=== PATIENT | male | born 1965 | race Caucasian/White ===

== ENCOUNTER 2017-02-20 13:05 | Observation (INO) ==
[2017-02-20] MEDS ORDERED: Aspirin 81 MG TAB.CHEW PO ONE (13:22)
--- NOTE | 2017-02-20 13:25 | Emergency Department Note ---
Disposition Clinical Impression: Chest pain Qualifiers: Chest pain type: unspecified Qualified Code(s): R07.9 - Chest pain, unspecified Disposition: Admitted As Inpatient Condition: Fair Forms: ED Satisfaction Letter Time of Disposition: 14:20 Chest Pain HPI - General Chief Complaint: ED Chest Pain Stated Complaint: chest pains, lightheaded, falling down, cramps Time Seen by Provider: 02/20/17 13:22 Source: patient Mode of arrival: ambulatory Limitations: no limitations Vital Signs Reviewed: Yes Nursing Notes Reviewed: Yes - History of Present Illness HPI Narrative: 51-year-old comes in with a two-week history of intermittent chest pain that is similar in character to the chest pain he had with his previous ME. Patient states that did have some nausea and diaphoresis associated. Pt complaint: chest pain Onset (ago): week(s) Duration: intermittent Onset: during rest Pain Location: substernal, left chest Severity scale (1-10): 0 Quality: tightness, aching Pain Radiation: none Improves with: nothing Worsens with: nothing Associated symptoms: Reports: nausea, diaphoresis - Related Data Previous Rx's Medication Instructions Recorded Omeprazole [PriLOSEC] 20 mg PO DAILY #30 capsule. 01/29/16 Diclofenac Sodium [Voltaren] 50 mg PO Q8HR #30 tablet. 09/06/16 HYDROcodone/Acet 5/325 mg [[place] 1 tab PO Q6H PRN #15 tab 09/06/16 5-325 mg] HYDROcodone/Acet 5/325 mg [[place] 1 tab PO Q6H PRN #6 tab 09/14/16 5-325 mg] Naproxen [Naprosyn] 500 mg PO BID PRN #10 tablet 09/14/16 Allergies Allergy/AdvReac Type Severity Reaction Status Date / Time No Known Drug Allergies Allergy See Verified 02/20/17 13:07 Comments All systems ED: reviewed and negative except as stated. Constitutional: Denies: fever, chills, weakness, weight change Eyes: Denies: eye pain, eye discharge, vision change ENT ED: Denies: ear pain, throat pain, dental pain, hearing loss, epistaxis, congestion, dysphagia Cardiovascular: Reports: chest pain. Denies: palpitations, dyspnea on exertion , edema, syncope Respiratory: Denies: cough, dyspnea, wheezes, hemoptysis, stridor Gastrointestinal: Denies: abdominal pain, nausea, vomiting, diarrhea, constipation, hematemesis, melena, hematochezia Genitourinary: Denies: urgency, dysuria, frequency, hematuria Musculoskeletal: Denies: back pain, neck pain, arthralgia, myalgia Integumentary: Denies: rash, abrasion, lesions Neurological: Denies: headache, weakness, numbness, paresthesias, confusion, abnormal gait, vertigo Psychiatric: Denies: anxiety, depression, suicidal thoughts, homicidal thoughts , auditory hallucinations, visual hallucinations Endocrine: Denies: fatigue Hematological/Lymphatic: Denies: easy bleeding, easy bruising Allergic/Immunologic: Denies: facial swelling, urticaria Chest Pain PMH - Past Medical History Medical history: Reports: coronary artery disease, hypertension, myocardial infarction Psychiatric history: Reports: depression - Social History Smoking Status: Current every day smoker Alcohol use: Reports: none Drug use: Reports: none Physical Exam - General Limitations: no limitations General appearance: alert, in no apparent distress - Head Head exam: atraumatic, normocephalic, normal inspection - Eye Eye exam: Present: normal appearance, PERRL, EOMI - ENT ENT exam: normal exam, normal oropharynx, mucous membranes moist - Neck Neck exam: Present: normal inspection, full ROM, trachea midline - Chest Chest inspection: Present: normal inspection, symmetric chest wall rise - Abdominal Exam Abdominal exam: Present: soft, Non-Tender. Absent: tenderness, distention, guarding, rebound, rigidity - Extremities Exam Extremities exam: Present: normal inspection, full ROM. Absent: tenderness, pedal edema - Expanded Lower Extremity Exam Neurovascular/Tendon exam: Absent: motor deficit, sensory deficit, tendon deficit Gait: observed and normal - Back Exam Back exam: Present: normal inspection, full ROM. Absent: tenderness - Neurological Exam Neurological exam: Present: alert, oriented X3 - Psychiatric Psychiatric exam: Present: normal affect, normal mood - Skin Skin exam: Present: warm, dry, intact, normal color Course - Reevaluation(s) Reevaluation #1: 51-year-old who states has a history of previous ME comes in complaining of chest pain is similar in character to his pain he had with his previous ME. No recent cardiac workup. He's been having intermittent chest pain. Workup in the ER is negative. We will admit for further evaluation. Time: 14:19 - Consultations Consultation #1: Discussed with , admit. Time: 14:19 Vital Signs Temperature 97.8 F 02/20/17 13:07 Pulse Rate 103 02/20/17 13:07 Respiratory Rate 18 02/20/17 13:07 Blood Pressure 168/83 02/20/17 13:07 O2 Sat by Pulse Oximetry 98 02/20/17 13:07 Temperature 97.8 F 02/20/17 13:07 Pulse Rate 74 02/20/17 13:24 Respiratory Rate 20 02/20/17 13:24 Blood Pressure 134/85 02/20/17 13:24 O2 Sat by Pulse Oximetry 98 02/20/17 13:33 Oxygen Delivery Oxygen Delivery Room Air Chest Pain - Lab Data Result diagrams: 02/20/17 13:29 02/20/17 13:29 Lab Results 02/20/17 02/20/17 02/20/17 Range/Units 13:29 13:29 13:29 WBC 7.4 (4.3-11.1) K/mcL RBC 4.62 (4.19-5.50) M/mcL Hgb 14.9 (12.9-16.9) g/dL Hct 41.6 (37.5-50.1) % MCV 90.0 (83.0-100.0) fL MCH 32.3 (28.0-33.3) pg MCHC 35.8 H (31.6-35.5) g/dL RDW 12.6 (11.5-14.5) % Plt Count 138 L (140-400) K/mcL MPV 10.1 (9.4-12.4) fL Immature Gran % 0.3 (0-4) % Seg Neutrophils % 78.2 % Lymphocytes % 13.0 % Monocytes % 7.3 % Eosinophils % 0.8 % Basophils % 0.4 % Neutrophils # 5.8 (1.6-8.9) K/mcL Lymphocytes # 1.0 (0.6-4.6) K/mcL Monocytes # 0.5 (0.0-1.3) K/mcL Eosinophils # 0.1 (0.0-0.6) K/mcL Basophils # 0.0 (0.0-0.2) K/mcL PT 11.8 (9.4-12.1) Seconds INR 1.1 APTT 27.2 (26.0-36.0) Seconds Sodium 135 L (136-145) mEq/L Potassium 3.7 (3.5-4.5) mEq/L Chloride 93 L (98-109) mEq/L Carbon Dioxide 33 H (19-29) mEq/L BUN 11 (8-26) mg/dL Creatinine 0.83 (0.72-1.25) mg/dL Est GFR ( Amer) > 60 (> 60) Est GFR (Non-Af Amer) > 60 (> 60) BUN/Creatinine Ratio 13 (6-26) Glucose 154 H (70-99) mg/dL Calculated Osmolality 282 (280-300) Calcium 9.6 (8.6-10.8) mg/dL Troponin I (0-0.03) ng/mL 02/20/17 Range/Units 13:29 WBC (4.3-11.1) K/mcL RBC (4.19-5.50) M/mcL Hgb (12.9-16.9) g/dL Hct (37.5-50.1) % MCV (83.0-100.0) fL MCH (28.0-33.3) pg MCHC (31.6-35.5) g/dL RDW (11.5-14.5) % Plt Count (140-400) K/mcL MPV (9.4-12.4) fL Immature Gran % (0-4) % Seg Neutrophils % % Lymphocytes % % Monocytes % % Eosinophils % % Basophils % % Neutrophils # (1.6-8.9) K/mcL Lymphocytes # (0.6-4.6) K/mcL Monocytes # (0.0-1.3) K/mcL Eosinophils # (0.0-0.6) K/mcL Basophils # (0.0-0.2) K/mcL PT (9.4-12.1) Seconds INR APTT (26.0-36.0) Seconds Sodium (136-145) mEq/L Potassium (3.5-4.5) mEq/L Chloride (98-109) mEq/L Carbon Dioxide (19-29) mEq/L BUN (8-26) mg/dL Creatinine (0.72-1.25) mg/dL Est GFR ( Amer) (> 60) Est GFR (Non-Af Amer) (> 60) BUN/Creatinine Ratio (6-26) Glucose (70-99) mg/dL Calculated Osmolality (280-300) Calcium (8.6-10.8) mg/dL Troponin I 0.01 (0-0.03) ng/mL - EKG Data EKG attestation: Yes I reviewed and interpreted this EKG. EKG shows normal: sinus rhythm Rate: normal Rhythm: NSR [place]/QRS: IVCD Interpretation: no acute changes Heart Score - Score History: Moderately Suspicious EKG: Normal Age: 45-65 Risk Factors: 1-2 risk factors Troponin: Less than normal limit HEART Score Total: 3
[2017-02-20 13:39] LABS: Basophils % 0.4 %; Eosinophils # 0.1 K/mcL (0.0-0.6); Eosinophils % 0.8 %; Hematocrit 41.6 % (37.5-50.1); Hemoglobin 14.9 g/dL (12.9-16.9); Immature Granulocytes % 0.3 % (0-4); Mean Corpuscular HGB Conc 35.8 g/dL (31.6-35.5); Mean Corpuscular Hemoglobin 32.3 pg (28.0-33.3); Mean Platelet Volume 10.1 fL (9.4-12.4); Monocytes # 0.5 K/mcL (0.0-1.3); Monocytes % 7.3 %; Neutrophils # 5.8 K/mcL (1.6-8.9); Platelet Count 138 K/mcL (140-400); Red Blood Count 4.62 M/mcL (4.19-5.50); Red Cell Distribution Width 12.6 % (11.5-14.5); Segmented Neutrophils % 78.2 %
[2017-02-20 13:52] LABS: BUN/Creatinine Ratio 13 (6-26); Blood Urea Nitrogen 11 mg/dL (8-26); Calcium 9.6 mg/dL (8.6-10.8); Carbon Dioxide 33 mEq/L (19-29); Chloride 93 mEq/L (98-109); Glucose 154 mg/dL (70-99); Osmolality,Calculated 282 (280-300); Potassium 3.7 mEq/L (3.5-4.5); Sodium 135 mEq/L (136-145); eGFR For African Americans > 60 (> 60); eGFR For Non-African Americans > 60 (> 60)
[2017-02-20 13:53] LABS: Activated Partial Thrombo Time 27.2 Seconds (26.0-36.0); INR 1.1; Prothrombin Time 11.8 Seconds (9.4-12.1)
[2017-02-20] MEDS ORDERED: Acetaminophen 325 MG TABLET PO PRN (15:09)
[2017-02-20] MEDS ORDERED: Naloxone 0.4 MG/ML INJ IVP PRN (15:09)
[2017-02-20] MEDS ORDERED: *HR* HYDROcodone/Acet 5/325 mg TABLET PO PRN (15:09)
[2017-02-20] MEDS ORDERED: Ondansetron 4 MG/2 ML VIAL IVP PRN (15:09)
[2017-02-20] MEDS ORDERED: *HR* Morphine 2 MG/ML SYRINGE IVP PRN (15:17)
--- NOTE | 2017-02-20 16:26 | Internal Med History&Physical ---
<[email or web address] elder - Last Filed: 02/20/17 16:59> Date of Encounter: 02/20/17 Time of Encounter: 13:30 Assessment and Plan (1) Chest pain Current visit: Yes Status: Acute Patient presents with acute chest pain that he reports has been going on for the past several weeks but became worse today. Patient reports shortness of breath, diaphoresis, and pressure in the center of his chest. He states rest will relieve the pain. He describes pain is intermittent and non-radiating. Patient also reports episodes of vomiting and nausea over the past week. On admission, patient's troponin was 0.01. Patient reports he is an everyday smoker , smoking 1/2 PPD and that he has had no recent cardiac testing done. Orders placed for echocardiogram, continuous cardiac telemetry, troponins trended 2, supplemental O2 with SPO2 monitoring, stair-step pain medication for pain management, orthostatic BP and vital signs, heparin for DVT prophylaxis, and falls/safety precautions due to SOB. Nuclear pharm stress test ordered with patient to be NPO after midnight. Stress test will be contingent upon patient having no chest pain and no abnormal troponins. EKG today shows sinus rhythm with moderate intraventricular conduction delay. 1-view CXR today shows no active pulmonary disease. We will consider cardiology consult based on echocardiogram and stress test results. Nitroglycerin ordered PRN. Patient to be monitored closely for signs of increasing cardiac and/or respiratory distress. Qualifiers: Chest pain type: other chest pain Qualified Code(s): R07.89 - Other chest pain; R07.8 - Other chest pain (2) SOB (shortness of breath) Current visit: Yes Status: Acute Patient presents with acute shortness of breath associated with recurrent chest pain symptoms over the past couple of weeks. Patient reports he is a current smoker, smoking one half pack per day. Supplemental O2 with titration if SPO2 less than 92% and continuous SpO2 monitoring ordered. DuoNebs every 4 scheduled. Will monitor patient and vital signs. Patient to be placed as falls precautions/up with assist/bed rest with bathroom privileges with assist only due to current SOB. (3) Nausea & vomiting Current visit: Yes Status: Acute Patient presents with acute and sporadic nausea and vomiting over the past week reportedly due to his intermittent chest pain. IVP Zofran ordered when necessary. IVP Protonix 40 mg twice a day ordered. Will monitor patient's I&O. Qualifiers: Vomiting type: cyclical vomiting Vomiting Intractability: non-intractable Qualified Code(s): G43.A0 - Cyclical vomiting, not intractable (4) Tobacco abuse counseling Current visit: Yes Status: Acute Patient presents with history of chronic tobacco abuse reportedly smoking one half pack per day. Patient was counseled for 8 minutes regarding the dangers of continued tobacco abuse as related to his current chest pain and risk factors and the benefits and methods for smoking cessation. Patient expressed understanding and desire to quit smoking. 14 mg nicotine patch ordered daily. (5) CAD (coronary artery disease) Current visit: Yes Status: Chronic Patient presents with history of chronic coronary artery disease with history of previous myocardial infarction in 2016 without stent placement. Will continue patient's hydrochlorothiazide and begin patient on aspirin therapy daily. Lipid panel ordered and we will consider adding Lipitor to patient's medication list based on lipid panel results. Qualifiers: Coronary Disease-Associated Artery/Lesion type: unspecified vessel or lesion type [place] vs. transplanted heart: [place] heart Associated angina: angina presence unspecified Qualified Code(s): I25.10 - Atherosclerotic heart disease of [place] coronary artery without angina pectoris (6) HTN (hypertension) Current visit: Yes Status: Chronic Patient presents with history of chronic hypertension. Patient's blood pressure on admission to ED was 168/83 and 156/87. Patient vital signs to be monitored. Will continue patient's hydrochlorothiazide. Orthostatic BPs and vital signs ordered. Qualifiers: Hypertension type: essential hypertension Qualified Code(s): I10 - Essential (primary) hypertension (7) GERD (gastroesophageal reflux disease) Current visit: Yes Status: Chronic Patient presents with history of chronic gastroesophageal reflux disease. IVP Protonix 40 mg twice a day ordered. Qualifiers: Esophagitis presence: esophagitis presence not specified Qualified Code(s) : K21.9 - Gastro-esophageal reflux disease without esophagitis (8) DVT prophylaxis Current visit: Yes Status: Acute Patient to be placed on DVT prophylaxis due to current admission protocol and bedrest status. Heparin 5,000 units SQ Q8 ordered. Internal Medicine - H&P: HPI Chief complaint: Chest pain Admitted From: Emergency Dept Plans for Post Hospital Care: Home History of present illness: Mr. Bailey is a 51 year old male who presents from the ED with chief complaint of chest pain for the last several weeks that he states has become worse. Patient reports shortness of breath, diaphoresis, and pressure in the center of his chest. He states rest will relieve the pain. He describes pain is intermittent and non-radiating. Patient also reports episodes of vomiting and nausea over the past week. On admission, patient's troponin was 0.01. Patient denies recent illness, fever, chills, weakness, changes in vision, heart palpitations, edema, cough, nausea, vomiting, diarrhea, constipation, numbness, weakness, presyncope, or syncope. Patient's medical history includes coronary artery disease, hypertension, myocardial infarction in 2016, and GERD. Patient reports he is a current every day smoker, smoking one half pack per day. Patient was counseled regarding the dangers of continued tobacco abuse is related to his current chest pain and risk factors and the benefits and methods for smoking cessation. Patient has no known allergies. Patient has no recent cardiac testing. Mr. Bailey is at moderate risk for cardiac event based on current symptoms, tobacco abuse, and risk factors and will be placed as observation status with orders for echocardiogram, continuous cardiac telemetry , troponins trended 2, supplemental O2 with SPO2 monitoring, stair-step pain medication for pain management, orthostatic BP and vital signs, heparin for DVT prophylaxis, and falls/safety precautions due to SOB. Nuclear pharm stress test ordered with patient to be NPO after midnight. Stress test will be contingent upon patient having no chest pain and no abnormal troponins. EKG today shows sinus rhythm with moderate intraventricular conduction delay. 1-view CXR today shows no active pulmonary disease. We will consider cardiology consult based on echocardiogram and stress test results. Patient to be monitored closely for signs of increasing cardiac and/or respiratory distress. Time spent with patient >40 minutes. Past Med Surg Social Fam HX - Past Medical History Source: patient Medical history: coronary artery disease, hypertension, myocardial infarction Psychiatric history: depression - Past Surgical History Surgical History: no surgical history - Social History Smoking Status: Current every day smoker Packs per day: 1/2 PPD Smokeless Tobacco Status: No Alcohol use: none Drug use: none Occupational status: unemployed Current living situation: Home Activity Level: Independent ambulation Recent Out of Country Travel Within the Last 8 Weeks: No Exposure or Possible Exposure to Illness During Travel: No - Family History Mother Race: Family Member Ethnicity: Non- Age at : 72 Cause of : Lung cancer Hx Family Cancer: Yes (Lung) Father Race: Family Member Ethnicity: Non- Living Status: Age at : 67 Cause of : Lung cancer Hx Family Cancer: Yes (Lung) Hx Family Neuromuscular Disorders: Yes (Parkinson's disease) Brother Race: Family Member Ethnicity: Non- Living Status: Still Living Hx Family Endocrine Disorder: Yes (DM) Sister Race: Family Member Ethnicity: Non- Living Status: Still Living Hx Family Endocrine Disorder: Yes (DM) Internal Medicine - H&P: Meds Omeprazole [PriLOSEC] 20 mg PO DAILY #30 capsule. 01/29/16 [Rx] Naproxen [Naprosyn] 500 mg PO BID PRN #10 tablet 09/14/16 [Rx] Sertraline [Zoloft] 50 mg PO DAILY 02/20/17 [History] hydroCHLOROthiazide [Hydrochlorothiazide] 12.5 mg PO DAILY 02/20/17 [History] 3 Allergy/AdvReac Type Severity Reaction Status Date / Time No Known Drug Allergies Allergy See Verified 02/20/17 13:07 Comments All Systems PM: A 10-system review of systems was performed and is negative for pertinent findings except as documented above in the HPI. - Constitutional Constitutional: as per HPI, excessive sweating (With chest pain), no chills, no fever(s), no night sweats - EENT Eyes: no change in vision, no discharge, no pain, no photophobia Ears: no ear discharge, no ear pain, no tinnitus Nose, mouth and throat: no dysphagia, no nasal discharge, no neck pain, no sore throat - Breasts Breasts: as per HPI - Cardiovascular Cardiovascular ROS IM: as per HPI, chest pain, diaphoresis, dyspnea, dyspnea on exertion - Respiratory Respiratory: as per HPI, dyspnea, dyspnea on exertion - Gastrointestinal Gastrointestinal: no abdominal pain, no diarrhea, no hematemesis, no hematochezia, no melena, no nausea, no vomiting - Genitourinary Genitourinary ROS male: as per HPI - Musculoskeletal Musculoskeletal ROS IM: no numbness, no tingling - Integumentary Integumentary IM: no rash, no unusual bruising - Neurological Neurological ROS: no confusion, no convulsions, no focal weakness, no numbness, no tingling, no tremor(s) - Psychiatric Psychiatric: as per HPI - Endocrine Endocrine IM: as per HPI - Hematologic/Lymphatic Hematologic/Lymphatic: no easy bruising - Allergic/Immunologic Allergic/Immunologic: as per HPI - Constitutional Vitals: Temp Pulse Resp BP Pulse Ox 98.3 F 69 16 133/76 100 02/20/17 15:17 02/20/17 15:17 02/20/17 15:17 02/20/17 15:17 02/20/17 15:17 General appearance: Present: cooperative, disheveled, A&O X 3, no acute distress , underweight, answers questions appropriately - Head Head exam: Present: atraumatic, normocephalic - Eye Eye exam: Present: PERRL, conjuntiva pink, sclera anicteric Pupils: Present: PERRL - ENT ENT exam: Present: normal exam, normal external ear exam - Neck Neck exam general surgery: Present: normal inspection, supple, trachea midline. Absent: lymphadenopathy - Respiratory Respiratory exam: Present: CTAB. Absent: accessory muscle use, rales, rhonchi, wheezes - Cardiovascular Cardiovascular exam: Present: RRR, +S1, +S2. Absent: diastolic murmur, gallop, rubs, systolic murmur - GI/Abdominal GI/Abdominal exam: Present: normal bowel sounds, soft, no peritoneal signs. Absent: distended, tenderness - Rectal Rectal exam: Present: deferred - Additional comments: exam deferred. - Extremities Exam Extremities exam: Present: warm, radial pulses palpable and symmetrical. Absent : calf tenderness, cyanotic, pedal edema - Back Exam Back exam: Present: normal inspection - Neurological Exam Neurological exam: Present: CN II-XII intact, oriented X3, no focal deficits. Absent: pronater drift, facial droop, speech deficit - Psychiatric Psychiatric exam: Present: flat affect - Skin Skin exam: Present: dry, intact Internal Med - H&P Results - Labs CBC & Chem 7: 02/20/17 13:29 02/20/17 13:29 - EKG Data EKG shows normal: sinus rhythm - EKG Data Prior EKG available for review: yes When compared to previous EKG: there is no significant change EKG comments: 02/20/17 16:41 EKG dated 09/10/10 shows sinus rhythm and normal ECG. EKG dated 01/29/16 shows sinus rhythm. EKG dated 02/20/17 shows sinus rhythm with moderate intraventricular conduction delay. Borderline ECG - Diagnostic Studies Chest x-ray Additional comments: Impressions Chest X-Ray 02/20/17 13:22 IMPRESSION: 1. No active pulmonary disease. D/ / Ariel Reyes MD / Ariel Reyes MD Interpreting Provider: Ariel Reyes MD <Rigoberto Munoz - Last Filed: 02/20/17 18:37> Date of Encounter: 02/20/17 Internal Medicine - H&P: HPI History of present illness: Mr. Bailey is a 51 year old male All Systems PM: A 10-system review of systems was performed and is negative for pertinent findings except as documented above in the HPI. - Constitutional Vitals: Temp Pulse Resp BP Pulse Ox 98.3 F 69 16 133/76 100 02/20/17 15:17 02/20/17 15:17 02/20/17 15:17 02/20/17 15:17 02/20/17 15:17 Internal Med - H&P Results - Labs CBC & Chem 7: 02/20/17 13:29 02/20/17 13:29 - Attending Attestation I saw and examined pt independently. I have discussed with [employer] Mr. Lynn regarding the management plan. Agree with documentation. Pt has intermittent chest pain on and off for several weeks. Need to r/o ACS/ CAD. Will cont cardiac monitoring, track 3 sets of troponin, echo, and stress test in AM if pt remains pain free and troponin negative.
[2017-02-20] MEDS ORDERED: Nitroglycerin 0.4 MG TAB.SUBL SL PRN (16:58)
[2017-02-20] MEDS: Nicotine 14 MG PATCH.TD24 TD SCH (17:02)
[2017-02-20] MEDS: Ipratropium/Albuterol Neb 3 ML IH SCH (20:08)
[2017-02-20] MEDS: Pantoprazole 40 MG VIAL IVP SCH (20:45)
[2017-02-20] MEDS: *HR* Heparin 5,000 UNIT/ML VIAL SQ SCH (20:45)
[2017-02-20 22:12] LABS: Amphetamine Screen,Urine Negative ng/mL (Cutoff=1000); Barbiturate Screen,Urine Negative ng/mL (Cutoff=200); Benzodiazepines Screen,Urine Negative ng/mL (Cutoff=200); Cannabinoid Screen,Urine Negative ng/mL (Cutoff = 50); Cocaine Screen,Urine Negative ng/mL (Cutoff= 300); Opiate Screen,Urine Negative ng/mL (Cutoff=300); Phencyclidine Screen,Urine Negative ng/mL (Cutoff=25)
[2017-02-21] MEDS: Ipratropium/Albuterol Neb 3 ML IH SCH ×7 (00:31→23:13)
[2017-02-21 02:11] LABS: Basophils # 0.1 K/mcL (0.0-0.2); Basophils % 0.9 %; Eosinophils # 0.4 K/mcL (0.0-0.6); Eosinophils % 7.3 %; Hematocrit 39.7 % (37.5-50.1); Hemoglobin 13.7 g/dL (12.9-16.9); Immature Granulocytes % 0.2 % (0-4); Immature Platelets 8.7 % (1.1-6.1); Lymphocytes # 1.8 K/mcL (0.6-4.6); Lymphocytes % 31.8 %; Mean Corpuscular HGB Conc 34.5 g/dL (31.6-35.5); Mean Corpuscular Hemoglobin 31.6 pg (28.0-33.3); Mean Corpuscular Volume 91.5 fL (83.0-100.0); Mean Platelet Volume 10.4 fL (9.4-12.4); Monocytes # 0.7 K/mcL (0.0-1.3); Monocytes % 12.5 %; Neutrophils # 2.6 K/mcL (1.6-8.9); Platelet Count 126 K/mcL (140-400); Red Blood Count 4.34 M/mcL (4.19-5.50); Red Cell Distribution Width 12.5 % (11.5-14.5); Segmented Neutrophils % 47.3 %
[2017-02-21 04:20] LABS: Hemoglobin A1C 4.8 %
[2017-02-21 04:24] LABS: BUN/Creatinine Ratio 17 (6-26); Blood Urea Nitrogen 12 mg/dL (8-26); Calcium 8.7 mg/dL (8.6-10.8); Carbon Dioxide 29 mEq/L (19-29); Chloride 97 mEq/L (98-109); Cholesterol 128 mg/dL (< 200); Glucose 86 mg/dL (70-99); HDL Cholesterol 64 mg/dL (40-59); LDL Cholesterol,Calculated 50 mg/dL (0-99); Magnesium 2.5 mg/dL (1.6-2.6); Osmolality,Calculated 283 (280-300); Potassium 3.1 mEq/L (3.5-4.5); Sodium 137 mEq/L (136-145); Triglycerides 72 mg/dL (< 150); eGFR For African Americans > 60 (> 60); eGFR For Non-African Americans > 60 (> 60)
[2017-02-21 05:28] LABS: Prothrombin Time 10.4 Seconds (9.4-12.1)
[2017-02-21 05:30] LABS: Activated Partial Thrombo Time 28.4 Seconds (26.0-36.0)
[2017-02-21] MEDS: *HR* Heparin 5,000 UNIT/ML VIAL SQ SCH ×3 (05:37→21:22)
[2017-02-21] MEDS ORDERED: Regadenoson 0.4 MG/5 ML SYRINGE IVP ONE (05:44)
[2017-02-21] MEDS: Nicotine 14 MG PATCH.TD24 TD SCH (09:37)
[2017-02-21] MEDS: Pantoprazole 40 MG VIAL IVP SCH (09:37)
[2017-02-21] MEDS: Aspirin Enteric Coated 81 MG Tablet PO SCH (09:37)
[2017-02-21] MEDS: hydroCHLOROthiazide 25 MG TABLET PO SCH (09:39)
--- NOTE | 2017-02-21 10:36 | Internal Med Progress Note ---
<OumarmalindasyedBacilio turcios - Last Filed: 02/21/17 10:32> Date of Encounter: 02/21/17 Time of Encounter: 10:32 - Assessment and plan (1) Chest pain Current Visit: Yes Status: Acute Assessment and plan: Resolved Pt admitted with chest pain. Trops - x3 EKG shows NSR c moderate intraventricular conduction delay CXR: no active pulmonary disease. Smoker, Hx of CAD, HTN ECHO and Stress test performed today results pending. Qualifiers: Chest pain type: other chest pain Qualified Code(s): R07.89 - Other chest pain; R07.8 - Other chest pain (2) SOB (shortness of breath) Current Visit: Yes Status: Acute Assessment and plan: Resolved. See plan in Chest Pain. discontinue Duonebs, Oxygen. (3) Nausea & vomiting Current Visit: Yes Status: Acute Assessment and plan: Resolved. Continue prn zofran Protonix d/c'd Started pepcid Qualifiers: Vomiting type: cyclical vomiting Vomiting Intractability: non-intractable Qualified Code(s): G43.A0 - Cyclical vomiting, not intractable (4) CAD (coronary artery disease) Current Visit: Yes Status: Chronic Assessment and plan: Chronic. continue ASA Started Statin. BB not started for Stress test/echo Qualifiers: Coronary Disease-Associated Artery/Lesion type: unspecified vessel or lesion type [place] vs. transplanted heart: [place] heart Associated angina: angina presence unspecified Qualified Code(s): I25.10 - Atherosclerotic heart disease of [place] coronary artery without angina pectoris (5) HTN (hypertension) Current Visit: Yes Status: Chronic Assessment and plan: Chronic, stable. Continue home meds Qualifiers: Hypertension type: essential hypertension Qualified Code(s): I10 - Essential (primary) hypertension (6) GERD (gastroesophageal reflux disease) Current Visit: Yes Status: Chronic Assessment and plan: Stable chronic continue pepcid Qualifiers: Esophagitis presence: esophagitis presence not specified Qualified Code(s) : K21.9 - Gastro-esophageal reflux disease without esophagitis (7) Tobacco abuse counseling Current Visit: Yes Status: Acute Assessment and plan: Counseled on stoping smoking. Patient desires to quit. continue nicotine patch - Subjective Interval history: Patient back from stress test and echo. He denies chest pain, SOB, Abd pn, leg swelling. He reports feeling well. - Constitutional Vitals: Temp Pulse Resp BP Pulse Ox 97.8 F 59 18 114/70 99 02/21/17 06:34 02/21/17 06:34 02/21/17 06:34 02/21/17 06:34 02/21/17 06:34 General appearance: Present: cooperative, disheveled, A&O X 3, no acute distress , underweight, answers questions appropriately - Head Head exam: Present: atraumatic, normocephalic - Eye Eye exam: Present: PERRL, sclera anicteric Pupils: Present: PERRL - ENT ENT exam: Present: mucous membranes moist - Neck Neck exam general surgery: Present: supple, trachea midline - Respiratory Respiratory exam: Present: CTAB. Absent: accessory muscle use, rales, rhonchi, wheezes - Cardiovascular Cardiovascular exam: Present: RRR, +S1, +S2. Absent: diastolic murmur, gallop, rubs, systolic murmur - GI/Abdominal GI/Abdominal exam: Present: normal bowel sounds, soft. Absent: tenderness - Extremities Exam Extremities exam: Absent: calf tenderness, cyanotic, pedal edema - Neurological Exam Neurological exam: Present: alert, oriented X3. Absent: facial droop, speech deficit - Psychiatric Psychiatric exam: Present: normal affect, normal mood - Skin Skin exam: Present: dry, warm Internal Medicine: Result - Labs CBC & Chem 7: 02/21/17 01:20 02/21/17 Unknown Labs: Short CBC 02/21/17 Range/Units 01:20 WBC 5.5 (4.3-11.1) K/mcL Hgb 13.7 (12.9-16.9) g/dL Hct 39.7 (37.5-50.1) % Plt Count 126 L (140-400) K/mcL Neutrophils # 2.6 (1.6-8.9) K/mcL BMP 02/21/17 Unknown Sodium 137 Potassium 3.1 L Chloride 97 L Carbon Dioxide 29 BUN 12 Creatinine 0.69 L Glucose 86 Calcium 8.7 Cardiac Enzymes 02/20/17 02/21/17 Range/Units 19:07 Unknown Troponin I 0.00 0.00 (0-0.03) ng/mL - ABG Interpretation ABG results: PT/INR, D-dimer PT 10.4 Seconds (9.4-12.1) 02/21/17 03:27 Consult Discharge Plan - Plan Referrals: NONE,PCP [Primary Care Provider] - <King Sarmiento P - Last Filed: 02/21/17 18:23> Date of Encounter: 02/21/17 - Constitutional Vitals: Temp Pulse Resp BP Pulse Ox 98.1 F 66 16 108/64 96 02/21/17 15:39 02/21/17 15:39 02/21/17 16:04 02/21/17 15:39 02/21/17 16:04 Internal Medicine: Result - Labs CBC & Chem 7: 02/21/17 01:20 02/21/17 Unknown Labs: Short CBC 02/21/17 Range/Units 01:20 WBC 5.5 (4.3-11.1) K/mcL Hgb 13.7 (12.9-16.9) g/dL Hct 39.7 (37.5-50.1) % Plt Count 126 L (140-400) K/mcL Neutrophils # 2.6 (1.6-8.9) K/mcL BMP 02/21/17 Unknown Sodium 137 Potassium 3.1 L Chloride 97 L Carbon Dioxide 29 BUN 12 Creatinine 0.69 L Glucose 86 Calcium 8.7 Cardiac Enzymes 02/20/17 02/21/17 Range/Units 19:07 Unknown Troponin I 0.00 0.00 (0-0.03) ng/mL - ABG Interpretation ABG results: PT/INR, D-dimer PT 10.4 Seconds (9.4-12.1) 02/21/17 03:27 - Attending Attestation I examined this patient and my medical decision-making was reviewed with the Resident Physician. I agree with the documented findings, disposition and treatment plan as described except to the extent set forth below.
--- NOTE | 2017-02-21 12:08 | Nuclear Medicine Stress Report ---
Exercise Nuclear Stress Name: Earl Bailey Date of Study: 02/21/2017 Date: 1965 Ht: 68.0 in Medical Record#: [id number] Age: 51 Wt: 145.0 lb Gender: Male Order #: [id number] Location: [facility] IP Room: [facility] Supervising Provider: Anna Chavis CNP Reading Physician: Rita Bonner DO Ordering Physician: King Sarmiento MD Primary Care Physician: None Stress Technologist: Cynthia Cochran, GUN NUMBER,CPFT [employer] Tile Setter: Macie Farley Indications: Chest Pain Impression: Perfusion imaging was negative for ischemia or infarct. Exercise ECG was negative for ischemia. Gated EF = 63%. History: Hypertension History of Smoking Stress Test Summary: Stress Test Type: Treadmill Protocol: [place] Baseline Information: Initial Heart Rate: 87 Blood Pressure: 108/46 Stress Information: Stress Time: 7 min 21 sec Test Terminated Due to (primary): Fatigue Maximum Blood Pressure: 146/60 Maximum Heart Rate: 156 Percent Maximum Heart Rate Achieved: 91 Double Product: [id number] METS Reached: 10.1 Symptoms: Fatigue Nuclear Summary: SPECT myocardial perfusion imaging using Tc99m Sestamibi given intravenously was performed at rest and following cardiac stress testing. The resting images were obtained following initial dose of 11.5 mCi. Following stress an additional dose of 32.2 mCi was given at peak exercise or 30 seconds post regadenoson infusion. Medication Given: Time Medication Dose Units Route Findings: Stress Note * Resting ECG demonstrated normal sinus rhythm with nonspecific diffuse ST abnormalities. * Exercise ECG is negative for ischemia. * No arrhythmias were noted during stress. Infrequent PVCs during rest and recovery. * Patient had no chest pain during stress. * The exercise capacity was good. Hemodynamic responses * Normal hemodynamic responses to exercise. Study Quality * Study quality was fair. Gated EF % * Gated EF = 63%. Left Ventricle * The left ventricle is not dilated. TID * No evidence of transient ischemic dilatation. Lung Uptake * There is no evidence of increase lung uptake. NORMALS * Normal wall motion. PERFUSION * There is a mild intensity perfusion defect involving the inferior wall during rest that improves with stress. Findings represent artifact. * Stress perfusion images demonstrate normal radiotracer uptake. Updated by Rita Bonner on 02/21/2017 9:42:26 AM electronically signed on 02/21/2017 9:43:30 AM with status of Final
--- NOTE | 2017-02-21 18:32 | Electrocardiograph Report ---
[place] [address] Test Date: 2017-02-20 Pat Name: Earl Bailey Department: 104 Room: 2A Gender: M [employer]: FREDY : 1965 Requested By: Tiago Padgett Order Number: [id number] Reading MD: Rita Bonner Measurements Intervals [place] Rate: 89 P: 77 CO: 163 QRS: 47 QRSD: 114 T: 60 QT: 353 QTc: 400 Interpretive Statements SINUS RHYTHM INTRAVENTRICULAR CONDUCTION DELAY Electronically Signed On 02-21-2017 18:30:47 EDT by Rita Bonner
[2017-02-21] MEDS: Famotidine 20 MG TABLET PO SCH (20:00)
[2017-02-22] MEDS: Ipratropium/Albuterol Neb 3 ML IH SCH ×3 (05:10→11:01)
[2017-02-22 05:41] LABS: Mean Corpuscular HGB Conc 32.8 g/dL (31.6-35.5); Mean Corpuscular Volume 94.6 fL (83.0-100.0); Mean Platelet Volume 11.1 fL (9.4-12.4); Platelet Count 130 K/mcL (140-400); Red Blood Count 4.23 M/mcL (4.19-5.50)
[2017-02-22 05:43] LABS: Hemoglobin 13.1 g/dL (12.9-16.9)
[2017-02-22 05:55] LABS: BUN/Creatinine Ratio 12 (6-26); Blood Urea Nitrogen 8 mg/dL (8-26); Calcium 8.9 mg/dL (8.6-10.8); Chloride 101 mEq/L (98-109); Glucose 90 mg/dL (70-99); Osmolality,Calculated 286 (280-300); Potassium 3.8 mEq/L (3.5-4.5); Sodium 139 mEq/L (136-145); eGFR For African Americans > 60 (> 60); eGFR For Non-African Americans > 60 (> 60)
[2017-02-22] MEDS: *HR* Heparin 5,000 UNIT/ML VIAL SQ SCH (06:11)
[2017-02-22 06:25] LABS: Carbon Dioxide 30 mEq/L (19-29)
[2017-02-22] MEDS ORDERED: 0.9 % Sodium Chloride 500 ML IVC ONE (08:28)
[2017-02-22] MEDS ORDERED: Tetracaine/Benzocaine/Butamben 200MG/SPRAY (100SPY/BOT) MM ONE (08:28)
[2017-02-22] MEDS: *HR* FentaNYL (PF) 100 MCG/2 ML VIAL IVP PRN ×2 (08:55→09:00)
[2017-02-22] MEDS: *HR* Midazolam HCl 5 MG/5 ML VIAL IVP PRN ×2 (08:55→09:00)
[2017-02-22] MEDS: Nicotine 14 MG PATCH.TD24 TD SCH (09:27)
[2017-02-22] MEDS: Aspirin Enteric Coated 81 MG Tablet PO SCH (09:27)
[2017-02-22] MEDS: hydroCHLOROthiazide 25 MG TABLET PO SCH (09:27)
[2017-02-22] MEDS: Famotidine 20 MG TABLET PO SCH (09:28)
--- NOTE | 2017-02-22 09:52 | Internal Med Progress Note ---
Date of Encounter: 02/22/17 Time of Encounter: 09:52 - Assessment and plan (1) Chest pain Current Visit: Yes Status: Acute Qualifiers: Chest pain type: other chest pain Qualified Code(s): R07.89 - Other chest pain; R07.8 - Other chest pain (2) SOB (shortness of breath) Current Visit: Yes Status: Acute (3) Nausea & vomiting Current Visit: Yes Status: Acute Qualifiers: Vomiting type: cyclical vomiting Vomiting Intractability: non-intractable Qualified Code(s): G43.A0 - Cyclical vomiting, not intractable (4) CAD (coronary artery disease) Current Visit: Yes Status: Chronic Qualifiers: Coronary Disease-Associated Artery/Lesion type: unspecified vessel or lesion type [place] vs. transplanted heart: [place] heart Associated angina: angina presence unspecified Qualified Code(s): I25.10 - Atherosclerotic heart disease of [place] coronary artery without angina pectoris (5) HTN (hypertension) Current Visit: Yes Status: Chronic Qualifiers: Hypertension type: essential hypertension Qualified Code(s): I10 - Essential (primary) hypertension (6) GERD (gastroesophageal reflux disease) Current Visit: Yes Status: Chronic Qualifiers: Esophagitis presence: esophagitis presence not specified Qualified Code(s) : K21.9 - Gastro-esophageal reflux disease without esophagitis (7) Tobacco abuse counseling Current Visit: Yes Status: Acute - Subjective Interval history: Patient back from stress test and echo. He denies chest pain, SOB, Abd pn, leg swelling. He reports feeling well. - Constitutional Vitals: Temp Pulse Resp BP Pulse Ox 97.6 F 66 18 131/70 99 02/22/17 08:29 02/22/17 08:29 02/22/17 08:29 02/22/17 08:29 02/22/17 08:29 General appearance: Present: cooperative, disheveled, A&O X 3, no acute distress , underweight, answers questions appropriately Internal Medicine: Result - Labs CBC & Chem 7: 02/22/17 04:35 02/22/17 04:35 Labs: Short CBC 02/22/17 Range/Units 04:35 WBC 5.0 (4.3-11.1) K/mcL Hgb 13.1 (12.9-16.9) g/dL Hct 40.0 (37.5-50.1) % Plt Count 130 L (140-400) K/mcL BMP 02/22/17 04:35 Sodium 139 Potassium 3.8 Chloride 101 Carbon Dioxide 30 H BUN 8 Creatinine 0.66 L Glucose 90 Calcium 8.9 - ABG Interpretation ABG results: PT/INR, D-dimer PT 10.4 Seconds (9.4-12.1) 02/21/17 03:27 Consult Discharge Plan - Plan Referrals: NONE,PCP [Primary Care Provider] -
--- NOTE | 2017-02-22 11:07 | Discharge Summary ---
<Bacilio Dumas - Last Filed: 02/22/17 16:12> Date of Encounter: 02/22/17 Time of Encounter: 11:07 - Discharge Diagnosis (1) Chest pain Priority: Primary Status: Acute Qualifiers: Chest pain type: chest pain on breathing Qualified Code(s): R07.1 - Chest pain on breathing; R07.81 - Pleurodynia (2) SOB (shortness of breath) Priority: Secondary Status: Acute (3) Nausea & vomiting Priority: Secondary Status: Acute Qualifiers: Vomiting type: cyclical vomiting Vomiting Intractability: non-intractable Qualified Code(s): G43.A0 - Cyclical vomiting, not intractable (4) CAD (coronary artery disease) Priority: Secondary Status: Chronic Qualifiers: Coronary Disease-Associated Artery/Lesion type: unspecified vessel or lesion type [place] vs. transplanted heart: [place] heart Associated angina: angina presence unspecified Qualified Code(s): I25.10 - Atherosclerotic heart disease of [place] coronary artery without angina pectoris (5) HTN (hypertension) Priority: Secondary Status: Chronic Qualifiers: Hypertension type: essential hypertension Qualified Code(s): I10 - Essential (primary) hypertension (6) GERD (gastroesophageal reflux disease) Priority: Secondary Status: Chronic Qualifiers: Esophagitis presence: esophagitis presence not specified Qualified Code(s) : K21.9 - Gastro-esophageal reflux disease without esophagitis (7) Tobacco abuse counseling Priority: Secondary Status: Acute - Discharge Medications Prescriptions: Nicotine Patch [Nicoderm] 14 mg TD DAILY #30 patch Home Medications: Omeprazole [PriLOSEC] 20 mg PO DAILY #30 capsule.dr 01/29/16 [Rx] Naproxen [Naprosyn] 500 mg PO BID PRN #10 tablet 09/14/16 [Rx] Sertraline [Zoloft] 50 mg PO DAILY 02/20/17 [History] hydroCHLOROthiazide [Hydrochlorothiazide] 12.5 mg PO DAILY 02/20/17 [History] Nicotine Patch [Nicoderm] 14 mg TD DAILY #30 patch 02/22/17 [Rx] Allergies/Adverse Reactions: 3 Allergy/AdvReac Type Severity Reaction Status Date / Time No Known Drug Allergies Allergy See Verified 02/20/17 13:07 Comments Procedures/tests Complete & Pending: Procedures Performed prior 72 hours Category Date Time Status NM fidencio perf SPECT multi [NM] Routine Exams 02/20/17 15:26 Taken EV ALTHEA transesophageal echo Routine Y 02/22/17 17:44 Completed EV echocardiogram Routine Y 02/21/17 15:19 Completed SP exercise nuclear stress Routine Y 02/21/17 07:00 Completed ALTHEA: Impressions: Normal LV size and systolic function, LVEF 60-65% Normal RV size and systolic function. Trileaflet aortic valve with prominent focal calcification of the non-coronary leaflet. No aortic stenosis. Moderate eccentric aortic regurgitation, which is directed toward the anterior leaflet of the mitral valve. There is mild prolapse of the anterior leaflet of the mitral valve. Trace mitral regurgitation. TTE: Impressions: LVEF 60%. Normal left ventricular size and systolic function. Normal diastolic function of the left ventricle. Normal right ventricular size and function. Aortic valve leaflet morphology is not well visualized. Aortic valve is calcified with mild to moderate aortic regurgitation. No aortic stenosis. 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 Consider ALTHEA if appropriate. No pulmonary hypertension. Stress Test: Impression: Perfusion imaging was negative for ischemia or infarct. Exercise ECG was negative for ischemia. Gated EF = 63%. CXR: FINDINGS: The heart size is within normal limits. The pulmonary vasculature is also within normal limits. No acute infiltrates are seen. The costophrenic angles are sharp bilaterally. No pneumothoraces are noted. There are scattered calcified granulomas. XR/XR chest 1V portable IMPRESSION: 1. No active pulmonary disease. Date of admission: 02/20/17 14:48 Primary care physician: PCP NONE Discharging clinician: Bacilio Dumas Anticipated date of discharge: 02/22/17 - Patient Status Disposition: Home, Self-Care Condition: Good Functional capacity at discharge: independent ambulation Overall status at discharge: patient is progressing back to baseline - Discharge Instructions Instructions: Chest Pain (DC), Low Sodium Diet (DC) Follow Up With: NONE,PCP [Primary Care Provider] - 02/28/17 10:00 am (Please follow up with [facility]. For any information, please contact them at [phone].) Additional Instructions: Please Follow up with your primary care provider within 1 week of your discharge as scheduled. Please resume all your home medications as prescribed. Please return to the hospital if you experience new or worsening symptoms. - Diet and Activity Activity: resume usual activities as tolerated Diet: advance to your usual diet Interval History: Patient had ALTHEA today to evaluate Aortic valve. Found to have moderate regurge, no stenosis, No bicuspid leaflets, calcification of leaflets. Asymptomatic. Hospital course: Mr. Bailey is a 51 year old male c PMHx of coronary artery disease, hypertension, myocardial infarction presented to the hospital on 02/20/17 with Chest pain, SOB, diaphoresis, and N/V. Patient's troponin was 0.01 on admission. It was trended and remained negative. patient had an echo cardiogram and a stress test which were negative for ischemia. Patient was found to have Aortic regurgitation on TTE and it was recommended patient had ALTHEA for further evaluation. ALTHEA showed moderate regurgitation with calcification of leafletes. Patient was not symptomatic of this aortic regurge. His chest pain had resolved and patient felt well enough to be discharged on 02/22/17. - Time Spent with Patient Total time spent providing and/or coordinating discharge services: - Constitutional Vitals: Temp Pulse Resp BP Pulse Ox 97.6 F 66 18 131/70 97 02/22/17 08:29 02/22/17 08:29 02/22/17 11:02 02/22/17 08:29 02/22/17 11:02 General appearance: Present: cooperative, disheveled, A&O X 3, no acute distress , underweight, answers questions appropriately - Head Head exam: Present: atraumatic, normocephalic - Eye Eye exam: Present: PERRL, sclera anicteric Pupils: Present: PERRL - Neck Neck exam general surgery: Present: supple, trachea midline - Respiratory Respiratory exam: Present: CTAB. Absent: rales, rhonchi, wheezes - Cardiovascular Cardiovascular exam: Present: RRR, +S1, +S2. Absent: diastolic murmur, gallop, rubs, systolic murmur - GI/Abdominal GI/Abdominal exam: Present: normal bowel sounds, soft. Absent: tenderness - Extremities Exam Extremities exam: Absent: calf tenderness, cyanotic, pedal edema - Neurological Exam Neurological exam: Present: alert, oriented X3. Absent: facial droop, speech deficit - Psychiatric Psychiatric exam: Present: normal affect, normal mood - Skin Skin exam: Present: dry, intact, warm <Guillermina,King P - Last Filed: 02/22/17 17:36> Date of Encounter: 02/22/17 Procedures/tests Complete & Pending: Procedures Performed prior 72 hours Category Date Time Status NM fidencio perf SPECT multi [NM] Routine Exams 02/20/17 15:26 Taken EV ALTHEA transesophageal echo Routine Y 02/22/17 17:44 Completed EV echocardiogram Routine Y 02/21/17 15:19 Completed SP exercise nuclear stress Routine Y 02/21/17 07:00 Completed Date of admission: 02/20/17 14:48 Primary care physician: PCP NONE Hospital course: Mr. Bailey is a 51 year old male - Time Spent with Patient Total time spent providing and/or coordinating discharge services: - Constitutional Vitals: Temp Pulse Resp BP Pulse Ox 97.5 F L 61 14 152/82 100 02/22/17 12:04 02/22/17 12:04 02/22/17 12:04 02/22/17 12:04 02/22/17 12:04 - Attending Attestation I examined this patient and my medical decision-making was reviewed with the Resident Physician. I agree with the documented findings, disposition and treatment plan as described except to the extent set forth below. Follow-up with PCP/cardiology.
[2017-02-22 12:05] VITALS: BP 152/82
== END 2017-02-22 14:00 | disposition home or self-care (01) ==
LOC: 2ANU 13:05 → EMEROO 13:05 → 2ANU 15:05
PROVIDERS: ADMIT Internal Medicine; ATTEND Internal Medicine

== ENCOUNTER 2018-06-29 20:00 | Observation (INO) ==
--- NOTE | 2018-06-29 20:16 | Emergency Department Note ---
Disposition Clinical Impression: Alcohol abuse, Suicidal ideation CAD (coronary artery disease) Qualifiers: Coronary Disease-Associated Artery/Lesion type: [place] artery [place] vs. transplanted heart: [place] heart Associated angina: with unspecified angina Qualified Code(s): I25.119 - Atherosclerotic heart disease of [place] coronary artery with unspecified angina pectoris Chest pain Qualifiers: Chest pain type: unspecified Qualified Code(s): R07.9 - Chest pain, unspecified Disposition: Admitted As Inpatient Condition: Fair General Adult HPI - General Chief complaint: ED General Medical Stated complaint: Chest Pain Time Seen by Provider: 06/29/18 20:08 Source: patient, EMS Limitations: no limitations Nursing Notes Reviewed: Yes Vital Signs Reviewed: Yes - History of Present Illness HPI Narrative: 53-year-old male with history of CAD presenting to the emergency department via EMS with complaints of chest pain and suicidal ideation. Per EMS he presented to their fire house complaining of chest pain for 1 day. The patient does admit to drinking one case of beer today and for every day since he was released from retirement several months ago. On examination the patient states he wishes he were but has no definitive plan for suicide. The patient's history of present illness is limited due to his altered mental status. Pain Scale: 5 - Related Data Home Medications Medication Instructions Recorded Confirmed RX: Aspirin 81 mg PO DAILY 08/18/17 08/18/17 RX: PARoxetine HCl [Paroxetine HCl] 10 mg PO DAILY 08/18/17 08/18/17 Triamterene/Hydrochlorothiazid 1 tab PO DAILY 08/18/17 08/18/17 [Dyazide 37.5-25 Capsule] Previous Rx's Medication Instructions Recorded Albuterol Sulfate [Albuterol 2 puff IH Q6HR #1 hfa.aer.ad 08/22/17 Inhaler] Azithromycin [Zithromax] 250 mg PO DAILY #6 tablet 08/22/17 Azithromycin [Azithromycin 6-Tab 250 mg PO PER PKG DI #6 tab 06/16/18 Pack] RX: PredniSONE [Deltasone] 50 mg PO DAILY #5 tablet 06/16/18 Allergies Allergy/AdvReac Type Severity Reaction Status Date / Time No Known Drug Allergies Allergy See Verified 08/18/17 11:05 Comments All systems ED: reviewed and negative except as stated. Review of Systems: As Per HPI Limitations: ROS unobtainable due to patients medical condition Cardiovascular: Reports: chest pain Past Medical History - Past Medical History Medical history: Reports: coronary artery disease, hyperlipidemia, hypertension, myocardial infarction Surgical history: Reports: no surgical history Psychiatric history: Reports: depression - Social History Smoking Status: Current every day smoker Smokeless Tobacco Status: No Alcohol use: Reports: recent Drug use: Reports: none Physical Exam - General Limitations: altered mental status General appearance: alert, in no apparent distress, appears intoxicated - Head Head exam: normocephalic - Expanded Head Exam Head exam physicial: Present: abrasion (small abrasion of left cheek overlying zygoma, no crepitus or hematoma). Absent: contusion, hematoma - Eye Eye exam: Present: normal appearance, PERRL, EOMI - ENT ENT exam: normal exam, normal oropharynx, mucous membranes moist - Neck Neck exam: Present: normal inspection - Chest Chest inspection: Present: normal inspection, symmetric chest wall rise. Absent: tenderness, rash - Respiratory Respiratory exam: Present: normal lung sounds bilaterally. Absent: respiratory distress, wheezes, stridor, accessory muscle use - Cardiovascular Cardiovascular exam: Present: regular rate, normal rhythm, normal heart sounds - Abdominal Exam Abdominal exam: Present: soft, Non-Tender, normal bowel sounds. Absent: distention, guarding, rebound, rigidity - Neurological Exam Neurological exam: Present: alert - Expanded Neurological Exam Patient oriented to: Present: person. Absent: place, time Motor strength - LUE: 5/5 Motor strength - RUE: 5/5 Motor strength - LLE: 5/5 Motor strength - RLE: 5/5 Coma Scale Eye Opening: Spontaneous Coma Scale Motor Response: Obeys Commands Coma Scale Verbal Response: Confused Coma Scale Total: 14 - Psychiatric Psychiatric exam: Present: normal affect, normal mood - Skin Skin exam: Present: warm, dry, intact Course Vital Signs Temperature 98.0 F 06/29/18 20:04 Pulse Rate 108 06/29/18 20:04 Respiratory Rate 16 06/29/18 20:04 Blood Pressure 151/105 06/29/18 20:04 O2 Sat by Pulse Oximetry 96 06/29/18 20:04 Temperature 97.7 F 06/30/18 00:21 Pulse Rate 83 06/30/18 00:21 Respiratory Rate 16 06/30/18 00:21 Blood Pressure 127/77 06/30/18 00:21 O2 Sat by Pulse Oximetry 95 06/30/18 00:26 Oxygen Delivery Oxygen Delivery Room Air Medical Decision Making - MDM Narrative Medical decision making narrative: 53-year-old male with history of alcohol abuse and CAD who presents the emergency department with chest pain and suicidal ideation. On initial presentation he is slurring speech and appears clinically intoxicated. He does admit to chest pain. He has an abrasion over the left zygoma and given his altered mental status obtained CT head which revealed no evidence of acute bleed. Otherwise chest pain rule out initiated including CBC, BMP, troponin, EKG and chest x-ray. The patient does not have elevation in his troponin but given his continued altered mental status and history of CAD to believe he requires medical admission for ACS workup and alcohol withdrawal. At this point he is not cleared medically to be evaluated by inpatient psychiatry. Discussed the case with on-call hospitalist who agrees with plan for admission. Patient agrees with and understands course of treatment plan including plan for admission. All questions answered. - Medical Records Medical records reviewed: Yes I reviewed the patient's medical records. - Lab Data Lab results reviewed: Yes I reviewed the patient's lab results. Result diagrams: 06/29/18 20:48 06/29/18 20:48 Lab Results 06/29/18 06/29/18 06/29/18 Range/Units 20:07 20:30 20:30 WBC (4.3-11.1) K/mcL RBC (4.19-5.50) M/mcL Hgb (12.9-16.9) g/dL Hct (37.5-50.1) % MCV (83.0-100.0) fL MCH (28.0-33.3) pg MCHC (31.6-35.5) g/dL RDW (11.5-14.5) % Plt Count (140-400) K/mcL MPV (9.4-12.4) fL Immature Gran % (0-4) % Seg Neutrophils % % Lymphocytes % % Monocytes % % Eosinophils % % Basophils % % Neutrophils # (1.6-8.9) K/mcL Lymphocytes # (0.6-4.6) K/mcL Monocytes # (0.0-1.3) K/mcL Eosinophils # (0.0-0.6) K/mcL Basophils # (0.0-0.2) K/mcL Sodium (136-145) mEq/L Potassium (3.5-5.1) mEq/L Chloride (98-107) mEq/L Carbon Dioxide (23-29) mEq/L BUN (6-20) mg/dL Creatinine (0.70-1.30) mg/dL Est GFR ( Amer) (> 60) Est GFR (Non-Af Amer) (> 60) BUN/Creatinine Ratio (6-26) Glucose (70-105) mg/dL POC Glucose 79 (70-99) mg/dL Calculated Osmolality (280-300) Calcium (8.6-10.3) mg/dL Total Bilirubin (0.3-1.0) mg/dL Direct Bilirubin (0.0-0.2) mg/dL Indirect Bilirubin (0.0-1.2) mg/dL AST (13-39) Units/L ALT (7-52) Units/L Alkaline Phosphatase (34-104) Units/L Troponin I (< 0.04) ng/mL Serum Total Protein (6.4-8.9) g/dL Albumin (3.5-5.7) g/dL Globulin (2.4-3.5) g/dL Albumin/Globulin Ratio (1.1-2.2) Urine Color Yellow (Yellow) Urine Clarity Clear (Clear) Urine pH 6.0 (5.0-8.0) pH Units Ur Specific [place] 1.019 (1.010-1.025) Urine Protein Negative (Neg-Trace) mg/dL Urine Glucose (UA) Normal (Normal) mg/dL Urine Ketones Negative (Negative) mg/dL Urine Blood Negative (Negative) Urine Nitrite Negative (Negative) Urine Bilirubin Negative (Negative) Urine Urobilinogen Normal (Normal) mg/dL Ur Leukocyte Esterase Negative (Negative) Salicylates (15.0-30.0) mg/dL Urine Opiates Screen Negative (Mplush=595) ng/mL Acetaminophen (10-20) mcg/mL Ur Barbiturates Screen Negative (Nnaafq=968) ng/mL Ur Phencyclidine Scrn Negative (Cutoff=25) ng/mL Ur Amphetamines Screen Negative (Nuodou=2330) ng/mL U Benzodiazepines Scrn Negative (Frigwi=145) ng/mL Urine Cocaine Screen Negative (Cutoff= 300) ng/mL U Marijuana (THC) Screen Negative (Cutoff = 50) ng/mL Ur Drug Screen Interp See Below Ethyl Alcohol (Less than 10) mg/dL 06/29/18 06/29/18 06/29/18 Range/Units 20:48 20:48 20:48 WBC 7.3 (4.3-11.1) K/mcL RBC 4.77 (4.19-5.50) M/mcL Hgb 15.1 (12.9-16.9) g/dL Hct 45.1 (37.5-50.1) % MCV 94.5 (83.0-100.0) fL MCH 31.7 (28.0-33.3) pg MCHC 33.5 (31.6-35.5) g/dL RDW 13.2 (11.5-14.5) % Plt Count 227 (140-400) K/mcL MPV 10.0 (9.4-12.4) fL Immature Gran % 0.3 (0-4) % Seg Neutrophils % 60.3 % Lymphocytes % 30.2 % Monocytes % 7.2 % Eosinophils % 1.2 % Basophils % 0.8 % Neutrophils # 4.4 (1.6-8.9) K/mcL Lymphocytes # 2.2 (0.6-4.6) K/mcL Monocytes # 0.5 (0.0-1.3) K/mcL Eosinophils # 0.1 (0.0-0.6) K/mcL Basophils # 0.1 (0.0-0.2) K/mcL Sodium 142 (136-145) mEq/L Potassium 3.6 (3.5-5.1) mEq/L Chloride 110 H (98-107) mEq/L Carbon Dioxide 25 (23-29) mEq/L BUN 7 (6-20) mg/dL Creatinine 0.63 L (0.70-1.30) mg/dL Est GFR ( Amer) > 60 (> 60) Est GFR (Non-Af Amer) > 60 (> 60) BUN/Creatinine Ratio 11 (6-26) Glucose 94 (70-105) mg/dL POC Glucose (70-99) mg/dL Calculated Osmolality 292 (280-300) Calcium 8.1 L (8.6-10.3) mg/dL Total Bilirubin 0.2 L (0.3-1.0) mg/dL Direct Bilirubin 0.0 (0.0-0.2) mg/dL Indirect Bilirubin 0.2 (0.0-1.2) mg/dL AST 79 H (13-39) Units/L ALT 51 (7-52) Units/L Alkaline Phosphatase 68 (34-104) Units/L Troponin I < 0.03 (< 0.04) ng/mL Serum Total Protein 7.5 (6.4-8.9) g/dL Albumin 4.5 (3.5-5.7) g/dL Globulin 3.0 (2.4-3.5) g/dL Albumin/Globulin Ratio 1.5 (1.1-2.2) Urine Color (Yellow) Urine Clarity (Clear) Urine pH (5.0-8.0) pH Units Ur Specific [place] (1.010-1.025) Urine Protein (Neg-Trace) mg/dL Urine Glucose (UA) (Normal) mg/dL Urine Ketones (Negative) mg/dL Urine Blood (Negative) Urine Nitrite (Negative) Urine Bilirubin (Negative) Urine Urobilinogen (Normal) mg/dL Ur Leukocyte Esterase (Negative) Salicylates < 2.5 L (15.0-30.0) mg/dL Urine Opiates Screen (Yzrvbb=987) ng/mL Acetaminophen < 10 L (10-20) mcg/mL Ur Barbiturates Screen (Gnzhrg=674) ng/mL Ur Phencyclidine Scrn (Cutoff=25) ng/mL Ur Amphetamines Screen (Fdonwe=4078) ng/mL U Benzodiazepines Scrn (Uoiqii=561) ng/mL Urine Cocaine Screen (Cutoff= 300) ng/mL U Marijuana (THC) Screen (Cutoff = 50) ng/mL Ur Drug Screen Interp Ethyl Alcohol 391 H (Less than 10) mg/dL - Radiology Data Radiology results reviewed: Yes I reviewed the patient's radiology results. Chest X-Ray 06/29/18 20:12 IMPRESSION: No acute cardiopulmonary disease. D/ / Hudson Tyson MD / Hudson Tyson MD Interpreting Provider: Hudson Tyson MD Head CT 06/29/18 20:14 IMPRESSION: No acute intracranial abnormality. D/ / Godwin Bell MD / Godwin Bell MD Interpreting Provider: Godwin Bell MD - EKG Data EKG #1 EKG attestation: Yes I reviewed and interpreted this EKG. EKG results narrative: Normal sinus rhythm rate of 99. Normal axis. CA 152, QRS 90, QT 339, QTC 435. No evidence of ST elevation. No prior for comparison. Attestation Statement - Attestation Attestation: Resident Attestation: I examined this patient and my medical decision making was reviewed with the Resident Physician. I agree with the documented findings, disposition and treatment plan as described except to the extent set forth below. We independently had [id number] contact with the patient. Patient presenting via EMS for multiple complaints. The patient went to the fire department for help. States he had been having chest pain since yesterday. Describes on the left side of his chest in the lifting that makes it better is alcohol. He states he has been drinking alcohol every day for the last 4 month s since he was released from retirement. He states that he knows that he is given a diet he just wishes that he would . Patient is clinically intoxicated and not able to give me any further insight into his chest pain or recent for drinking. Given his proposed 4 months of steady drinking as well as left-sided chest pain the patient will undergo evaluation for both suicidal ideations, chest pain, likely admission for COPD protocol. I did discuss case with the mental health team. They recommend with alcohol greater than 80, hospitalist admission for chest pain and see what swell as inpatient psychiatric evaluation.
[2018-06-29] MEDS ORDERED: Nicotine 21 MG PATCH.TD24 TD ONE (20:45)
[2018-06-29 20:48] LABS: Bilirubin,Urine Negative (Negative); Blood,Urine Negative (Negative); Clarity,Urine Clear (Clear); Color,Urine Yellow (Yellow); Glucose,Urine (UA) Normal (Normal); Ketones,Urine Negative (Negative); Leukocyte Esterase,Urine Negative (Negative); Nitrite,Urine Negative (Negative); Protein,Urine Negative (Neg-Trace); Specific Gravity,Urine 1.019 (1.010-1.025); Urobilinogen,Urine Normal (Normal)
[2018-06-29 21:13] LABS: Amphetamine Screen,Urine Negative ng/mL (Cutoff=1000); Barbiturate Screen,Urine Negative ng/mL (Cutoff=200); Benzodiazepines Screen,Urine Negative ng/mL (Cutoff=200); Cannabinoid Screen,Urine Negative ng/mL (Cutoff = 50); Cocaine Screen,Urine Negative ng/mL (Cutoff= 300); Opiate Screen,Urine Negative ng/mL (Cutoff=300); Phencyclidine Screen,Urine Negative ng/mL (Cutoff=25)
[2018-06-29 21:26] LABS: Basophils # 0.1 K/mcL (0.0-0.2); Basophils % 0.8 %; Eosinophils # 0.1 K/mcL (0.0-0.6); Eosinophils % 1.2 %; Hematocrit 45.1 % (37.5-50.1); Hemoglobin 15.1 g/dL (12.9-16.9); Immature Granulocytes % 0.3 % (0-4); Lymphocytes # 2.2 K/mcL (0.6-4.6); Lymphocytes % 30.2 %; Mean Corpuscular HGB Conc 33.5 g/dL (31.6-35.5); Mean Corpuscular Hemoglobin 31.7 pg (28.0-33.3); Mean Corpuscular Volume 94.5 fL (83.0-100.0); Monocytes # 0.5 K/mcL (0.0-1.3); Monocytes % 7.2 %; Neutrophils # 4.4 K/mcL (1.6-8.9); Platelet Count 227 K/mcL (140-400); Red Blood Count 4.77 M/mcL (4.19-5.50); Red Cell Distribution Width 13.2 % (11.5-14.5); Segmented Neutrophils % 60.3 %
[2018-06-29 21:46] LABS: Acetaminophen < 10 mcg/mL (10-20); Ethanol 391 mg/dL (Less than 10); Salicylate < 2.5 mg/dL (15.0-30.0)
[2018-06-29 21:49] LABS: Troponin I < 0.03 ng/mL (< 0.04)
[2018-06-29 21:52] LABS: Alanine Aminotransferase 51 Units/L (7-52); Albumin 4.5 g/dL (3.5-5.7); Albumin/Globulin Ratio 1.5 (1.1-2.2); Alkaline Phosphatase 68 Units/L (34-104); Aspartate Amino Transferase 79 Units/L (13-39); BUN/Creatinine Ratio 11 (6-26); Bilirubin,Indirect 0.2 mg/dL (0.0-1.2); Bilirubin,Total 0.2 mg/dL (0.3-1.0); Blood Urea Nitrogen 7 mg/dL (6-20); Calcium 8.1 mg/dL (8.6-10.3); Carbon Dioxide 25 mEq/L (23-29); Chloride 110 mEq/L (98-107); Glucose 94 mg/dL (70-105); Osmolality,Calculated 292 (280-300); Potassium 3.6 mEq/L (3.5-5.1); Sodium 142 mEq/L (136-145); Total Protein 7.5 g/dL (6.4-8.9); eGFR For Non-African Americans > 60 (> 60)
[2018-06-29] MEDS ORDERED: Multivit/Ca/Min/Fe/FA 1 TAB TABLET PO ONE (21:58)
[2018-06-29] MEDS ORDERED: Aspirin 81 MG TAB.CHEW PO STA (22:27)
[2018-06-30] MEDS ORDERED: Naloxone 0.4 MG/ML INJ IVP PRN (03:14)
[2018-06-30] MEDS ORDERED: *HR* Promethazine 25 MG/ML VIAL IVP PRN (03:15)
[2018-06-30] MEDS ORDERED: *HR* LORazepam 2 MG/ML VIAL IVP PRN ×3 (03:15)
[2018-06-30 05:48] LABS: Hematocrit 42.7 % (37.5-50.1); Hemoglobin 14.3 g/dL (12.9-16.9); Mean Corpuscular HGB Conc 33.5 g/dL (31.6-35.5); Mean Corpuscular Hemoglobin 31.4 pg (28.0-33.3); Mean Corpuscular Volume 93.8 fL (83.0-100.0); Mean Platelet Volume 9.9 fL (9.4-12.4); Platelet Count 205 K/mcL (140-400); Red Blood Count 4.55 M/mcL (4.19-5.50); Red Cell Distribution Width 13.4 % (11.5-14.5)
[2018-06-30 06:00] LABS: BUN/Creatinine Ratio 15 (6-26); Blood Urea Nitrogen 9 mg/dL (6-20); Calcium 8.3 mg/dL (8.6-10.3); Carbon Dioxide 22 mEq/L (23-29); Chloride 112 mEq/L (98-107); Glucose 93 mg/dL (70-105); Osmolality,Calculated 292 (280-300); Potassium 3.7 mEq/L (3.5-5.1); Sodium 142 mEq/L (136-145); eGFR For Non-African Americans > 60 (> 60)
--- NOTE | 2018-06-30 06:38 | Internal Med History&Physical ---
Date of Encounter: 06/30/18 Time of Encounter: 03:55 Internal Medicine - H&P: HPI Chief complaint: Alcohol intoxication, chest pain Admitted From: Emergency Dept Plans for Post Hospital Care: Home History of present illness: Mr. Bailey is a 53 year old male Patient presented to the emergency room for chest pain and suicidal ideation. Patient is currently intoxicated and his poor historian and only answers a few questions. As per EMS he presented to their fire house complaining of chest pain for 1 day. He indicated at that time that he had grade 1 case of beer and does not regularly. He recently was released from detention several months ago. EMS brought him to the emergency room for further evaluation. In the emergency room patient's initial vital signs showed an elevated blood pressure and heart rate, but these improved without intervention. Patient's CBC was within normal limits, as well as BMP. Patient's AST was slightly elevated, initial troponin undetectable. Urinalysis is negative for infection and urine tox screen also negative. Patient's blood alcohol level was 391. Chest x-ray showed no acute cardiopulmonary disease, head CT showed no acute intracranial abnormality. EKG showed normal sinus rhythm with no ST changes. Due to his intoxication and complaints of chest pain patient was admitted to the hospital for further monitoring. Upon my evaluation patient is sleeping in the hospital bed, but is arousable calling his name. He answers some questions but seems disinterested in my exam. He did state that he has had chest pain like this about 6 months ago he came to the hospital at that time for evaluation. According to our records his last admission here was over a year ago. Review of systems could not be completed due to patient condition and intoxication. Past Med Surg Social Fam HX - Past Medical History Medical history: coronary artery disease, hyperlipidemia, hypertension, myocardial infarction Psychiatric history: depression - Past Surgical History Surgical History: no surgical history - Social History Smoking Status: Current every day smoker Smokeless Tobacco Status: No Alcohol use: recent Drug use: none - Family History Mother Family Member Ethnicity: Non- Hx Family Cancer: Yes (Lung) Father Family Member Ethnicity: Non- Living Status: Hx Family Cancer: Yes (Lung) Hx Family Neuromuscular Disorders: Yes (Parkinson's disease) Brother Family Member Ethnicity: Non- Living Status: Still Living Hx Family Endocrine Disorder: Yes (DM) Sister Family Member Ethnicity: Non- Living Status: Still Living Hx Family Endocrine Disorder: Yes (DM) Internal Medicine - H&P: Meds Aspirin 81 mg PO DAILY 08/18/17 [History] PARoxetine HCl [Paroxetine HCl] 10 mg PO DAILY 08/18/17 [History] Triamterene/Hydrochlorothiazid [Dyazide 37.5-25 Capsule] 1 tab PO DAILY 08/18/17 [History] Albuterol Sulfate [Albuterol Inhaler] 2 puff IH Q6HR #1 hfa.aer.ad 08/22/17 [Rx] Azithromycin [Zithromax] 250 mg PO DAILY #6 tablet 08/22/17 [Rx] Azithromycin [Azithromycin 6-Tab Pack] 250 mg PO PER PKG DI #6 tab 06/16/18 [Rx] PredniSONE [Deltasone] 50 mg PO DAILY #5 tablet 06/16/18 [Rx] Allergy/AdvReac Type Severity Reaction Status Date / Time No Known Drug Allergies Allergy See Verified 08/18/17 11:05 Comments ROS unobtainable: due to mental status All Systems PM: A 10-system review of systems was performed and is negative for pertinent findings except as documented above in the HPI. - Constitutional Vitals: Temp Pulse Resp BP Pulse Ox 98.5 F 88 17 132/74 92 06/30/18 04:08 06/30/18 04:08 06/30/18 04:08 06/30/18 04:08 06/30/18 04:08 General appearance: Present: cooperative, pleasant, no acute distress, answers q uestions appropriately Exam: - - Head Head exam: Present: normal inspection - Eye Eye exam: Present: EOMI, normal appearance - Respiratory Respiratory exam: Present: CTAB. Absent: chest wall tenderness, respiratory distress, wheezes - Cardiovascular Cardiovascular exam: Present: RRR. Absent: diastolic murmur, systolic murmur - GI/Abdominal GI/Abdominal exam: Present: normal bowel sounds, soft. Absent: tenderness - Extremities Exam Extremities exam: Present: warm, radial pulses palpable and symmetrical. Absent: calf tenderness, pedal edema, tenderness - Neurological Exam Neurological exam: Present: no focal deficits, strengths equal and symetr throughout. Absent: motor sensory deficit, facial droop, speech deficit Additional comments: Patient did not exhibit tremor of the upper extremities - Skin Skin exam: Present: dry, normal color, warm Internal Med - H&P Results - Labs CBC & Chem 7: 06/30/18 04:48 06/30/18 04:48 Labs: Short CBC 06/29/18 06/30/18 Range/Units 20:48 04:48 WBC 7.3 6.1 (4.3-11.1) K/mcL Hgb 15.1 14.3 (12.9-16.9) g/dL Hct 45.1 42.7 (37.5-50.1) % Plt Count 227 205 (140-400) K/mcL Neutrophils # 4.4 (1.6-8.9) K/mcL BMP 06/29/18 06/30/18 20:48 04:48 Sodium 142 142 Potassium 3.6 3.7 Chloride 110 H 112 H Carbon Dioxide 25 22 L BUN 7 9 Creatinine 0.63 L 0.62 L Glucose 94 93 Calcium 8.1 L 8.3 L Cardiac Enzymes 06/29/18 06/30/18 Range/Units 20:48 04:48 Troponin I < 0.03 < 0.03 (< 0.04) ng/mL Liver Function 06/29/18 Range/Units 20:48 Total Bilirubin 0.2 L (0.3-1.0) mg/dL Direct Bilirubin 0.0 (0.0-0.2) mg/dL AST 79 H (13-39) Units/L ALT 51 (7-52) Units/L Alkaline Phosphatase 68 (34-104) Units/L Albumin 4.5 (3.5-5.7) g/dL Urine 06/29/18 Range/Units 20:30 Urine Color Yellow (Yellow) Urine Clarity Clear (Clear) Urine pH 6.0 (5.0-8.0) pH Units Ur Specific [place] 1.019 (1.010-1.025) Urine Protein Negative (Neg-Trace) mg/dL Urine Glucose (UA) Normal (Normal) mg/dL - Impressions ITS Impressions Chest X-Ray 06/29/18 20:12 IMPRESSION: No acute cardiopulmonary disease. D/ / Hudson Tyson MD / Hudson Tyson MD Interpreting Provider: Hudson Tyson MD Head CT 06/29/18 20:14 IMPRESSION: No acute intracranial abnormality. D/ / Godwin Bell MD / Godwin Bell MD Interpreting Provider: Godwin Bell MD - Assessment and plan (1) Chest pain Current Visit: Yes Status: Acute Assessment and plan: Patient initially presented to the emergency room complaining of chest pain. Initial troponin is negative. EKG does not show ischemic changes. Continue to trend troponins Cardiac monitoring Echocardiogram in the morning Qualifiers: Chest pain type: unspecified Qualified Code(s): R07.9 - Chest pain, unspecified (2) Alcohol abuse Current Visit: Yes Status: Acute Assessment and plan: Patient's blood alcohol level was 391. Not observed to be withdrawing at this time. Patient states he has been through alcohol withdrawal before and it starts with tremors. CIWA initiated, continue monitoring for signs of withdrawal Cardiac monitoring central services tech for alcohol counseling (3) Suicidal ideation Current Visit: Yes Status: Acute Assessment and plan: Patient stated to the emergency room as well as to the EMS team that he had suicidal thoughts. Consider psychiatric evaluation when patient no longer intoxicated. Sitter at bedside (4) DVT prophylaxis Current Visit: No Status: Acute Assessment and plan: Subcutaneous heparin - Time Spent With Patient Total time spent is greater than 50% in coordination of care (as documented) at patient's floor/unit and/or counseling patient: Greater than 35 minutes
[2018-06-30] MEDS ORDERED: Nicotine 7 MG PATCH.TD24 TD SCH (09:00)
--- NOTE | 2018-06-30 10:09 | Internal Med Progress Note ---
Hospitalist Progress Note - Encounter Date of Encounter: 06/30/18 Time of Encounter: 09:39 - Subjective Interval History: Patient admitted with chest pain and alcohol intoxication. He reports that he is currently chest pain free at rest. He does not return of chest pain with exertion. He does not appear intoxicated at this time. At time of admission he is also having suicidal ideation. At this time he denies suicidal ideation and/or homicidal ideation and denies auditory/visual hallucinations. - Exam Vitals: Temp Pulse Resp BP Pulse Ox 98.1 F 85 16 145/78 95 06/30/18 07:55 06/30/18 07:55 06/30/18 07:55 06/30/18 07:55 06/30/18 07:55 Exam: PHYSICAL EXAMINATION: GENERAL: Male, NAD, alert and O 3 HEENT: Head is normocephalic and atraumatic. Extraocular muscles are intact. Pupils are equal, round, and reactive to light and accommodation. NECK: Supple. No carotid bruits. No lymphadenopathy or thyromegaly. LUNGS: Clear to auscultation B/L AP and L. HEART: Regular rate and rhythm, S1, S2 without murmur, rubs or gallops. ABDOMEN: Soft, nontender, and nondistended. Positive bowel sounds. No hepatosplenomegaly was noted. EXTREMITIES: Without any cyanosis, clubbing, rash, lesions or edema. NEUROLOGIC: Cranial nerves II through XII are grossly intact. PSYCHIATRIC: Calm, Appropriate affect, denies SI/HI, without agitation or anxiety. Denies any auditory/visual hallucinations SKIN: No ulceration or induration present. - Assessment and Plan (1) Chest pain Current Visit: Yes Status: Acute Assessment and Plan: Presents for ACS rule out His factors include hypertension and smoking Chest x-ray without acute pulmonary findings He reports a One-day history of midsternal chest pain with radiation to bilateral shoulders He does note an exertional component as well as shortness of breath. Symptoms do improve with rest Currently resting comfortably in bed per my assessment this morning and chest pain-free EKG and ED negative for ST-T wave changes concerning for ischemia Troponins negative 2, third troponin pending Continue with ACS rule out Obtain nuclear stress test TTE Daily aspirin Start lisinopril for hypertension Fasting lipid panel overnight SC heparin twice a day UDS negative (2) Tobacco abuse Current Visit: Yes Status: Acute Assessment and Plan: Strongly encouraged cessation (3) Alcohol intoxication Current Visit: Yes Status: Acute Assessment and Plan: Patient presented with alcohol intoxication; he reported that he ingested approximately 24 servings of alcohol prior to admission EtOH 391 on admission Does not appear to be in an intoxicated state at this time Last drink was yesterday evening Continue with CIWA protocol He is without auditory/visual hallucinations, he has not responding to any internal stimulus no tremors noted to exam Discussed alcohol cessation (4) Alcohol abuse Current Visit: Yes Status: Acute Assessment and Plan: As above (5) Suicidal ideation Current Visit: Yes Status: Acute Assessment and Plan: Denies at this time Consults psychiatry to discuss suicidal ideation (6) SOB (shortness of breath) Current Visit: No Status: Acute Assessment and Plan: In the setting of chest pain (7) HTN (hypertension) Current Visit: No Status: Chronic Assessment and Plan: 4. Hypertension per history Mildly hypertensive this morning however patient denies any anti-HTN medication use Start low-dose lisinopril and monitor DVT Prophylaxis: Twice a day SC heparin - Time Spent with Patient Total time spent is greater than 50% in coordination of care (as documented) at patient's floor/unit and/or counseling patient: less than 15 minutes Plan of Care Discussed with: patient Internal Medicine: Result - Labs CBC & Chem 7: 06/30/18 04:48 06/30/18 04:48 Labs: Short CBC 06/29/18 06/30/18 Range/Units 20:48 04:48 WBC 7.3 6.1 (4.3-11.1) K/mcL Hgb 15.1 14.3 (12.9-16.9) g/dL Hct 45.1 42.7 (37.5-50.1) % Plt Count 227 205 (140-400) K/mcL Neutrophils # 4.4 (1.6-8.9) K/mcL BMP 06/29/18 06/30/18 20:48 04:48 Sodium 142 142 Potassium 3.6 3.7 Chloride 110 H 112 H Carbon Dioxide 25 22 L BUN 7 9 Creatinine 0.63 L 0.62 L Glucose 94 93 Calcium 8.1 L 8.3 L Cardiac Enzymes 06/29/18 06/30/18 Range/Units 20:48 04:48 Troponin I < 0.03 < 0.03 (< 0.04) ng/mL Liver Function 06/29/18 Range/Units 20:48 Total Bilirubin 0.2 L (0.3-1.0) mg/dL Direct Bilirubin 0.0 (0.0-0.2) mg/dL AST 79 H (13-39) Units/L ALT 51 (7-52) Units/L Alkaline Phosphatase 68 (34-104) Units/L Albumin 4.5 (3.5-5.7) g/dL Urine 06/29/18 Range/Units 20:30 Urine Color Yellow (Yellow) Urine Clarity Clear (Clear) Urine pH 6.0 (5.0-8.0) pH Units Ur Specific [place] 1.019 (1.010-1.025) Urine Protein Negative (Neg-Trace) mg/dL Urine Glucose (UA) Normal (Normal) mg/dL - Impressions Impressions Chest X-Ray 06/29/18 20:12 IMPRESSION: No acute cardiopulmonary disease. D/ / Hudson Tyson MD / Hudson Tyson MD Interpreting Provider: Hudson Tyson MD Head CT 06/29/18 20:14 IMPRESSION: No acute intracranial abnormality. D/ / Godwin Bell MD / Godwin Bell MD Interpreting Provider: Godwin Bell MD Consult Discharge Plan - Plan Referrals: NONE,PCP [Primary Care Provider] - (1) Chest pain Qualifiers: Chest pain type: unspecified Qualified Code(s): R07.9 - Chest pain, unspecified (3) Alcohol intoxication Qualifiers: Complication of substance-induced condition: uncomplicated Qualified Code(s): F10.920 - Alcohol use, unspecified with intoxication, uncomplicated (7) HTN (hypertension) Qualifiers: Hypertension type: essential hypertension Qualified Code(s): I10 - Essential (primary) hypertension
[2018-06-30] MEDS: Thiamine (B-1) 100 MG, Folic Acid 1 MG, MVI, adult with vitamin K 10 ML in 0.9 % Sodi... IVPB SCH (19:46)
[2018-06-30] MEDS: *HR* Heparin 5,000 UNIT/ML VIAL SQ SCH (19:52)
[2018-07-01 04:39] LABS: Chol/HDL Ratio 1.9 (0-4.9)
[2018-07-01] MEDS: *HR* Heparin 5,000 UNIT/ML VIAL SQ SCH ×2 (05:42→17:32)
[2018-07-01] MEDS: Aspirin 81 MG TAB.CHEW PO SCH (08:20)
--- NOTE | 2018-07-01 12:55 | Internal Med Progress Note ---
Hospitalist Progress Note - Encounter Date of Encounter: 07/01/18 Time of Encounter: 12:53 - Subjective Interval History: Patient admitted with chest pain and alcohol intoxication. Reporting episodes of chest pain at rest overnight. He does note some accompanying dizziness with this. Denies any SI/HI or auditory/visual hallucinations. Does not some mild tremmors. He has experienced alcohol withdrawal before and reports that his symptoms were primarily tremors and nausea. - Exam Vitals: Temp Pulse Resp BP Pulse Ox 97.7 F 63 16 136/70 97 07/01/18 11:21 07/01/18 11:21 07/01/18 11:21 07/01/18 11:21 07/01/18 11:21 Exam: PHYSICAL EXAMINATION: GENERAL: Male, NAD, alert and O 3 HEENT: Head is normocephalic and atraumatic. Extraocular muscles are intact. Pupils are equal, round, and reactive to light and accommodation. NECK: Supple. No carotid bruits. No lymphadenopathy or thyromegaly. CHEST: Nontender to palpation, symmetrical with adequate rise and fall LUNGS: Clear to auscultation B/L AP and L. HEART: Regular rate and rhythm, S1, S2 without murmur, rubs or gallops. ABDOMEN: Soft, nontender, and nondistended. Positive bowel sounds. No hepatosplenomegaly was noted. EXTREMITIES: Without any cyanosis, clubbing, rash, lesions or edema. NEUROLOGIC: Cranial nerves II through XII are grossly intact. Fine tremmors PSYCHIATRIC: Calm, Appropriate affect, denies SI/HI, without agitation or anxiety. Denies any auditory/visual hallucinations. SKIN: No ulceration or induration present. - Assessment and Plan (1) Chest pain Current Visit: Yes Status: Acute Assessment and Plan: Presents for ACS rule out His factors include hypertension and smoking Chest x-ray without acute pulmonary findings He reports a One-day history of midsternal chest pain with radiation to bilateral shoulders He does note an exertional component as well as shortness of breath. Symptoms do improve with rest Currently resting comfortably in bed per my assessment this morning and chest pain-free EKG and ED negative for ST-T wave changes concerning for ischemia Troponins negative 2, third troponin pending Continue with ACS rule out Obtain nuclear stress test TTE Daily aspirin Start lisinopril for hypertension Fasting lipid panel overnight SC heparin twice a day UDS negative 07/01- 2 episodes of CP overnight. Each lasting approximately 1 hour while at rest with associated dizziness. He has been having chest pain with a exertional component for greater than one month. Negative troponins 3, EKG without ST or T-wave changes concerning for ischemia. TTE with normal LV structure and function, normal RV structure and function, mild AR, mild-moderate aortic regurgitation. Most likely the cause of his symptoms. However the chest pain is also occurring at rest we will proceed with rule out ACS with stress test in the morning. (2) Tobacco abuse Current Visit: Yes Status: Acute Assessment and Plan: Strongly encouraged cessation (3) Alcohol intoxication Current Visit: Yes Status: Resolved Assessment and Plan: Patient presented with alcohol intoxication on admission; he reported that he ingested approximately 24 servings of alcohol prior to admission EtOH 391 on admission Does not appear to be in an intoxicated state at this time Last drink was yesterday evening Continue with CIWA protocol He is without auditory/visual hallucinations, he has not responding to any internal stimulus no tremors noted to exam Discussed alcohol cessation 07/01 resolved. continue CIWA (4) Alcohol abuse Current Visit: Yes Status: Acute Assessment and Plan: As above (5) Suicidal ideation Current Visit: Yes Status: Resolved Assessment and Plan: Denies any SI/HI He denies any plan to harm himself or anyone else He is goal oriented and does discuss futures plans He admits to stating that he wished he'd while he was intoxicated however, he states that he only said it because he was intoxicated (6) SOB (shortness of breath) Current Visit: No Status: Acute Assessment and Plan: persists with acitivity most likely d/t aortic stenosis and mild-moderate AR as well a h/o COPD (7) HTN (hypertension) Current Visit: No Status: Chronic Assessment and Plan: 4. Hypertension per history Mildly hypertensive this morning however patient denies any anti-HTN medication use Start low-dose lisinopril and monitor 07/01- resolved with initiation of ACEI DVT Prophylaxis: Twice a day SC heparin - Time Spent with Patient Total time spent is greater than 50% in coordination of care (as documented) at patient's floor/unit and/or counseling patient: less than 15 minutes Plan of Care Discussed with: patient Internal Medicine: Result - Labs CBC & Chem 7: 06/30/18 04:48 06/30/18 04:48 - Impressions Impressions Echocardiogram 06/30/18 06:30 Impressions: LVEF 60%. Normal LV chamber size, wall thickness and function. Normal right ventricular structure and function. Mild aortic stenosis. Mild-moderate aortic regurgitation. No evidence of pulmonary hypertension. Left Ventricular Wall Motion: Rest Echo Findings All wall segments showed normal motion. Findings: Study Quality * Technically adequate exam. ECG Findings * Normal sinus rhythm. Left Ventricle * LVEF 60%. * Normal LV chamber size, wall thickness and function. * Normal left ventricular diastolic function. Right Ventricle * Normal right ventricular structure and function. Left Atrium * Normal left atrial size. Right Atrium * Normal right atrial size. Interatrial Septum * Interatrial septum not well evaluated. * No evidence of PFO by color Doppler. Aortic Valve * Aortic valve not well visualized. * Moderately calcified aortic valve leaflets. * Mild aortic stenosis. * Mild-moderate aortic regurgitation. Mitral Valve * Normal mitral valve structure. * No mitral stenosis. * No mitral regurgitation. Tricuspid Valve * Normal tricuspid valve structure and function. * No tricuspid stenosis. * Trace tricuspid regurgitation. * Unable to estimate RVSP due to lack of TR jet. * No evidence of pulmonary hypertension. * Estimated RA pressure is 3 mmHg. Pulmonic Valve * Pulmonic valve is not well visualized. * No pulmonic stenosis. * No pulmonic regurgitation. Aorta * Normally sized aortic root. Pericardium * The pericardium appears normal. IVC * Normal IVC dimensions and inspiratory collapse. Consult Discharge Plan - Plan Referrals: Bryanna South DO [Resident] - (1) Chest pain Qualifiers: Chest pain type: unspecified Qualified Code(s): R07.9 - Chest pain, unspecified (3) Alcohol intoxication Qualifiers: Complication of substance-induced condition: uncomplicated Qualified Code(s): F10.920 - Alcohol use, unspecified with intoxication, uncomplicated (7) HTN (hypertension) Qualifiers: Hypertension type: essential hypertension Qualified Code(s): I10 - Essential (primary) hypertension
[2018-07-01] MEDS: Thiamine (B-1) 100 MG, Folic Acid 1 MG, MVI, adult with vitamin K 10 ML in 0.9 % Sodi... IVPB SCH (17:32)
[2018-07-02] MEDS: *HR* Heparin 5,000 UNIT/ML VIAL SQ SCH (05:12)
[2018-07-02] MEDS ORDERED: Regadenoson 0.4 MG/5 ML SYRINGE IVP ONE (05:56)
--- NOTE | 2018-07-02 08:40 | Internal Med Progress Note ---
Hospitalist Progress Note - Encounter Date of Encounter: 07/02/18 Time of Encounter: 08:37 - Subjective Interval History: Denies SI/HI, no acute change in condition. Remains CP free. Psych consult pending to r/o SI. - Exam Vitals: Temp Pulse Resp BP Pulse Ox 98.0 F 61 16 125/77 98 07/02/18 04:14 07/02/18 04:14 07/02/18 04:14 07/02/18 04:14 07/02/18 04:14 Exam: PHYSICAL EXAMINATION: GENERAL: Male, NAD, alert and O 3 HEENT: Head is normocephalic and atraumatic. EOMI, PERRLA NECK: Supple. No carotid bruits. No lymphadenopathy or thyromegaly. CHEST: Nontender to palpation, symmetrical with adequate rise and fall LUNGS: Clear to auscultation B/L AP and L. HEART: Regular rate and rhythm, S1, S2 without murmur, rubs or gallops. ABDOMEN: Soft, nontender, and nondistended. NABS EXTREMITIES: Without any cyanosis, rash, lesions or edema. NEUROLOGIC: Cranial nerves II through XII are grossly intact. Fine tremmors persists PSYCHIATRIC: Calm, Appropriate affect, denies SI/HI, without agitation or anxiety. Denies any auditory/visual hallucinations. SKIN: No ulceration or induration present. - Assessment and Plan (1) Chest pain Current Visit: Yes Status: Acute Assessment and Plan: Presents for ACS rule out His factors include hypertension and smoking Chest x-ray without acute pulmonary findings He reports a One-day history of midsternal chest pain with radiation to bilateral shoulders He does note an exertional component as well as shortness of breath. Symptoms do improve with rest Currently resting comfortably in bed per my assessment this morning and chest pain-free EKG and ED negative for ST-T wave changes concerning for ischemia Troponins negative 2, third troponin pending Continue with ACS rule out Obtain nuclear stress test TTE Daily aspirin Start lisinopril for hypertension Fasting lipid panel overnight SC heparin twice a day UDS negative 07/02--ACS r/o with chest pain on admission. He has had chest pain in termittently since admission at both rest and with exertion. Work up thus far has been unremarkable with normal troponins, EKG without ischemic changes. His TTE did note mild as well as mild-moderate AR. He will have a stress test this morning. (2) Tobacco abuse Current Visit: Yes Status: Acute Assessment and Plan: Strongly encouraged cessation (3) Alcohol intoxication Current Visit: Yes Status: Resolved Assessment and Plan: Patient presented with alcohol intoxication on admission; he reported that he ingested approximately 24 servings of alcohol prior to admission EtOH 391 on admission Does not appear to be in an intoxicated state at this time Last drink was yesterday evening Continue with CIWA protocol He is without auditory/visual hallucinations, he has not responding to any internal stimulus no tremors noted to exam Discussed alcohol cessation 07/01 resolved. continue CIWA 07/02- Greater than 48 hourse since last use. Continue to closely monitor for s/sx of withdrawal (4) Alcohol abuse Current Visit: Yes Status: Acute Assessment and Plan: As above (5) Suicidal ideation Current Visit: Yes Status: Resolved Assessment and Plan: Denies any SI/HI He denies any plan to harm himself or anyone else He is goal oriented and does discuss futures plans He admits to stating that he wished he'd while he was intoxicated however, he states that he only said it because he was intoxicated 07/02--continues to deny SI/HI psych consulted to d/w patient continue 1:1 for now (6) SOB (shortness of breath) Current Visit: No Status: Acute Assessment and Plan: persists with acitivity most likely d/t aortic stenosis and mild-moderate AR as well a h/o COPD (7) HTN (hypertension) Current Visit: No Status: Chronic Assessment and Plan: HTN resolved with initiation of ACEI will need ACEI at d/c DVT Prophylaxis: BID SC heparin - Time Spent with Patient Total time spent is greater than 50% in coordination of care (as documented) at patient's floor/unit and/or counseling patient: less than 15 minutes Plan of Care Discussed with: patient Internal Medicine: Result - Labs CBC & Chem 7: 06/30/18 04:48 06/30/18 04:48 Consult Discharge Plan - Plan Referrals: Bryanna South DO [Resident] - (1) Chest pain Qualifiers: Chest pain type: unspecified Qualified Code(s): R07.9 - Chest pain, unspecif ied (3) Alcohol intoxication Qualifiers: Complication of substance-induced condition: uncomplicated Qualified Code(s): F10.920 - Alcohol use, unspecified with intoxication, uncomplicated (7) HTN (hypertension) Qualifiers: Hypertension type: essential hypertension Qualified Code(s): I10 - Essential (primary) hypertension
[2018-07-02 08:56] VITALS: BP 146/76
[2018-07-02] MEDS: Aspirin 81 MG TAB.CHEW PO SCH (10:01)
--- NOTE | 2018-07-02 12:50 | Consult Note ---
Date of Encounter: 07/02/18 Time of Encounter: 12:46 Assessment & Recommendation (1) Depression, major, recurrent, moderate Current visit: Yes Status: Acute Assessment & Recommendation: Client denies SI, intent, or plan. Does not require inpatient admission. Takes Paxil 20mg at home. Can restart this in hospital as client reports it works for him. Recommend referrals for substance abuse treatment prior to discharge. Mario corey sign off. Call if any questions. History of Present Illness Requesting Physician: Gieslla Chavarria Reason for consult: suicidal ideation History of present illness: Mr. Bailey is a 53 year old male who was admitted in an intoxicated state with chest pain. Endorsed SI at time of admission. Client has consistently denied SI since becoming sober and denies SI again today. Client remembers endorsing SI but states it was the alcohol talking. Denies any past suicide attempts. Denies any current SI, intent, or plan. Admits to being treated for depression. Takes Paxil at home from PCP. Never hospitalized. Released from [facility] days ago and has been drinking daily since. Started with a few beers a day and recently drinking a case and a half daily. Client has had substance abuse treatment in the past and admits he probably needs it again. Denies all other drugs of abuse. Pleasant today. Thinking clearly. No evidence of psychosis or a major mood disturbance. CC: Gisella Chavarria Past Med Surg Social Fam HX - Past Medical History Medical history: coronary artery disease, hyperlipidemia, hypertension, myocardial infarction - Past Psychiatric History Psychiatric history: Reports: depression Family psychiatric history: Unknown Family History of Suicide: Unknown - Past Surgical History Surgical History: no surgical history - Social History Smoking Status: Current every day smoker Smokeless Tobacco Status: No Alcohol use: recent Drug use: none - Family History Mother Family Member Ethnicity: Non- Hx Family Cancer: Yes (Lung) Father Family Member Ethnicity: Non- Living Status: Hx Family Cancer: Yes (Lung) Hx Family Neuromuscular Disorders: Yes (Parkinson's disease) Brother Family Member Ethnicity: Non- Living Status: Still Living Hx Family Endocrine Disorder: Yes (DM) Sister Family Member Ethnicity: Non- Living Status: Still Living Hx Family Endocrine Disorder: Yes (DM) Medications & Allergies Aspirin 81 mg PO DAILY 08/18/17 [History] Triamterene/Hydrochlorothiazid [Dyazide 37.5-25 Capsule] 1 tab PO DAILY 08/18/17 [History] Albuterol Sulfate [Albuterol Inhaler] 2 puff IH Q6HR #1 hfa.aer.ad 08/22/17 [Rx] PARoxetine HCl [Paroxetine HCl] 20 mg PO DAILY 06/30/18 [History] Allergy/AdvReac Type Severity Reaction Status Date / Time No Known Drug Allergies Allergy See Verified 08/18/17 11:05 Comments Review of Systems Constitutional: Denies: fever, chills, weakness, weight change Eyes: Denies: eye pain, vision change Ears, Nose, Throat: Denies: ear pain, throat pain, dental pain, hearing loss, congestion Cardiovascular: Denies: chest pain, palpitations, dyspnea on exertion Respiratory: Denies: cough, dyspnea, wheezes Gastrointestinal: Denies: abdominal pain, nausea, vomiting, diarrhea, constipation Genitourinary male: Denies: urgency, dysuria, frequency, genital lesions Musculoskeletal: Denies: joint swelling, joint pain Integumentary: Denies: rash, lesions, pruritus Neurological: Denies: headache, weakness, numbness, memory loss Endocrine: Denies: fatigue, heat or cold intolerance Hematologic/Lymphatic: Denies: easy bruising, lymphadenopathy Allergic/Immunologic: Denies: urticaria, itchy eyes Psychiatry Exam - Constitutional Vitals: Temp Pulse Resp BP Pulse Ox 97.4 F L 66 16 146/76 98 07/02/18 08:55 07/02/18 08:55 07/02/18 08:55 07/02/18 08:55 07/02/18 08:55 General appearance: age & developmentally appropriate, well-groomed, well- nourished - Musculoskeletal Gait: normal Station: relaxed Strength & Tone: normal for patient - Psychiatric Patient Orientation: Yes Person, Yes Time, Yes Place Level of alertness: Alert Behavior: calm, cooperative Psychomotor activity: Normal Eye Contact: Maintains Eye Contact Mood Description: Depressed Affect description: full range Speech Volume: Normal Speech pattern: normal rate, normal rhythm, normal tone, fluent, spontaneous Language & Vocabulary: consistent with education Thought Process: Linear, Goal Oriented Thought Content: No Suicidal ideation, No Homicidal ideation, No Overt delusions Perceptual Disturbances: No Auditory hallucinations, No Visual hallucinations Attention Span Ability: Capable of Focused Attention Memory Description: Grossly Intact Patient Reliability: Reliable Historian Fund of knowledge: Yes abstraction ability, Yes aware of current events Intelligence Estimate: Average Judgment: Fair Insight: Partial Results - Labs Labs: Laboratory Last Values WBC 6.1 K/mcL (4.3-11.1) 06/30/18 04:48 RBC 4.55 M/mcL (4.19-5.50) 06/30/18 04:48 Hgb 14.3 g/dL (12.9-16.9) 06/30/18 04:48 Hct 42.7 % (37.5-50.1) 06/30/18 04:48 MCV 93.8 fL (83.0-100.0) 06/30/18 04:48 MCH 31.4 pg (28.0-33.3) 06/30/18 04:48 MCHC 33.5 g/dL (31.6-35.5) 06/30/18 04:48 RDW 13.4 % (11.5-14.5) 06/30/18 04:48 Plt Count 205 K/mcL (140-400) 06/30/18 04:48 MPV 9.9 fL (9.4-12.4) 06/30/18 04:48 Immature Gran % 0.3 % (0-4) 06/29/18 20:48 Seg Neutrophils % 60.3 % 06/29/18 20:48 Lymphocytes % 30.2 % 06/29/18 20:48 Monocytes % 7.2 % 06/29/18 20:48 Eosinophils % 1.2 % 06/29/18 20:48 Basophils % 0.8 % 06/29/18 20:48 Neutrophils # 4.4 K/mcL (1.6-8.9) 06/29/18 20:48 Lymphocytes # 2.2 K/mcL (0.6-4.6) 06/29/18 20:48 Monocytes # 0.5 K/mcL (0.0-1.3) 06/29/18 20:48 Eosinophils # 0.1 K/mcL (0.0-0.6) 06/29/18 20:48 Basophils # 0.1 K/mcL (0.0-0.2) 06/29/18 20:48 Sodium 142 mEq/L (136-145) 06/30/18 04:48 Potassium 3.7 mEq/L (3.5-5.1) 06/30/18 04:48 Chloride 112 mEq/L (98-107) H 06/30/18 04:48 Carbon Dioxide 22 mEq/L (23-29) L 06/30/18 04:48 BUN 9 mg/dL (6-20) 06/30/18 04:48 Creatinine 0.62 mg/dL (0.70-1.30) L 06/30/18 04:48 Est GFR ( Amer) > 60 (> 60) 06/30/18 04:48 Est GFR (Non-Af Amer) > 60 (> 60) 06/30/18 04:48 BUN/Creatinine Ratio 15 (6-26) 06/30/18 04:48 Glucose 93 mg/dL (70-105) 06/30/18 04:48 POC Glucose 79 mg/dL (70-99) 06/29/18 20:07 Calculated Osmolality 292 (280-300) 06/30/18 04:48 Calcium 8.3 mg/dL (8.6-10.3) L 06/30/18 04:48 Total Bilirubin 0.2 mg/dL (0.3-1.0) L 06/29/18 20:48 Direct Bilirubin 0.0 mg/dL (0.0-0.2) 06/29/18 20:48 Indirect Bilirubin 0.2 mg/dL (0.0-1.2) 06/29/18 20:48 AST 79 Units/L (13-39) H 06/29/18 20:48 ALT 51 Units/L (7-52) 06/29/18 20:48 Alkaline Phosphatase 68 Units/L (34-104) 06/29/18 20:48 Troponin I < 0.03 ng/mL (< 0.04) 06/30/18 09:57 Serum Total Protein 7.5 g/dL (6.4-8.9) 06/29/18 20:48 Albumin 4.5 g/dL (3.5-5.7) 06/29/18 20:48 Globulin 3.0 g/dL (2.4-3.5) 06/29/18 20:48 Albumin/Globulin Ratio 1.5 (1.1-2.2) 06/29/18 20:48 Triglycerides 53 mg/dL (< 150) 07/01/18 03:39 Cholesterol 139 mg/dL (< 200) 07/01/18 03:39 LDL Cholesterol, Calc 56 mg/dL (0-99) 07/01/18 03:39 VLDL Cholesterol, Calc 11 mg/dL (< 31) 07/01/18 03:39 HDL Cholesterol 72 mg/dL (40-59) H 07/01/18 03:39 Cholesterol/HDL Ratio 1.9 (0-4.9) 07/01/18 03:39 Urine Color Yellow (Yellow) 06/29/18 20:30 Urine Clarity Clear (Clear) 06/29/18 20:30 Urine pH 6.0 pH Units (5.0-8.0) 06/29/18 20:30 Ur Specific [place] 1.019 (1.010-1.025) 06/29/18 20:30 Urine Protein Negative mg/dL (Neg-Trace) 06/29/18 20:30 Urine Glucose (UA) Normal mg/dL (Normal) 06/29/18 20:30 Urine Ketones Negative mg/dL (Negative) 06/29/18 20:30 Urine Blood Negative (Negative) 06/29/18 20:30 Urine Nitrite Negative (Negative) 06/29/18 20:30 Urine Bilirubin Negative (Negative) 06/29/18 20:30 Urine Urobilinogen Normal mg/dL (Normal) 06/29/18 20:30 Ur Leukocyte Esterase Negative (Negative) 06/29/18 20:30 Salicylates < 2.5 mg/dL (15.0-30.0) L 06/29/18 20:48 Urine Opiates Screen Negative ng/mL (Voevhn=682) 06/29/18 20:30 Acetaminophen < 10 mcg/mL (10-20) L 06/29/18 20:48 Ur Barbiturates Screen Negative ng/mL (Lsxzzx=111) 06/29/18 20:30 Ur Phencyclidine Scrn Negative ng/mL (Cutoff=25) 06/29/18 20:30 Ur Amphetamines Screen Negative ng/mL (Pymqdn=8841) 06/29/18 20:30 U Benzodiazepines Scrn Negative ng/mL (Ihutbp=671) 06/29/18 20:30 Urine Cocaine Screen Negative ng/mL (Cutoff= 300) 06/29/18 20:30 U Marijuana (THC) Screen Negative ng/mL (Cutoff = 50) 06/29/18 20:30 Ur Drug Screen Interp See Below 06/29/18 20:30 Ethyl Alcohol 391 mg/dL (Less than 10) H 06/29/18 20:48 Consult Discharge Plan - Plan Referrals: Bryanna South DO [Resident] - Miky Jesus DO [Resident] - 07/06/18 10:00 am
--- NOTE | 2018-07-02 13:49 | Discharge Summary ---
- NOTES TO OUTPATIENT PROVIDER Notes to Outpatient Provider: no pending studies Orders not resulted at time of discharge: Pending orders 06/30/18 10:19 NM fidencio perf SPECT multi [NM] Routine Date of Encounter: 07/02/18 Time of Encounter: 13:46 - Discharge Diagnosis (1) Chest pain Priority: Primary Status: Ruled-out Qualifiers: Chest pain type: unspecified Qualified Code(s): R07.9 - Chest pain, unspecified (2) Tobacco abuse Priority: Secondary Status: Acute (3) Alcohol intoxication Priority: Secondary Status: Resolved Qualifiers: Complication of substance-induced condition: uncomplicated Qualified Code(s): F10.920 - Alcohol use, unspecified with intoxication, uncomplicated (4) Alcohol abuse Priority: Secondary Status: Acute Assessment and Plan: offered counseling declined (5) Suicidal ideation Priority: Secondary Status: Ruled-out Assessment and Plan: paxil rx given takes at home restarted at rec of psychiatrist (6) SOB (shortness of breath) Priority: Secondary Status: Acute (7) HTN (hypertension) Priority: Secondary Status: Chronic Qualifiers: Hypertension type: essential hypertension Qualified Code(s): I10 - Essential (primary) hypertension Hospital course: Mr. Bailey is a 53 year old male who was admitted for chest pain, etoh intox and SI. ACS ruled out with negative serial trops, EKG without ischemic changes and stress test negative for ischemia. SI r/o by psych with recs to restart paxil at home dose of 20mg daily. Offered counseling for etoh abuse but he declined. d/c home in stable condition. He has been instructed to f/u with Dr. South in 1-2 weeks. Discharge discussed with: patient, nurse - Time Spent with Patient Total time spent providing and/or coordinating discharge services: Less than 30 minutes - Discharge Medications Prescriptions: Paroxetine [Paxil] 20 mg PO DAILY 30 Days #30 tablet Home Medications: Aspirin 81 mg PO DAILY 08/18/17 [History] Triamterene/Hydrochlorothiazid [Dyazide 37.5-25 Capsule] 1 tab PO DAILY 08/18/17 [History] Albuterol Sulfate [Albuterol Inhaler] 2 puff IH Q6HR #1 hfa.aer.ad 08/22/17 [Rx] Paroxetine [Paxil] 20 mg PO DAILY 30 Days #30 tablet 07/02/18 [Rx] Allergies/Adverse Reactions: Allergy/AdvReac Type Severity Reaction Status Date / Time No Known Drug Allergies Allergy See Verified 08/18/17 11:05 Comments Date of admission: 06/29/18 22:41 Primary care physician: PCP NONE Consults: 06/30/18 03:15 Consult to [employer] [CONS] Routine Reason for SW Consult: Alcoholism 07/01/18 18:20 Consult to Psychiatry [CONS] Routine Consulting Provider: Psychiatry [facility] Reason consult: Winfred slip on chart Other reason and/or additional details: SI Winfred Slip initiated date and time: 06/30/18; 12:57a Discharging clinician: Oleg Bartholomew Anticipated date of discharge: 07/02/18 - Constitutional Vitals: Temp Pulse Resp BP Pulse Ox 97.4 F L 66 16 146/76 98 07/02/18 08:55 07/02/18 08:55 07/02/18 08:55 07/02/18 08:55 07/02/18 08:55 General appearance: Present: cooperative, A&O X 3, pleasant, no acute distress, answers questions appropriately Exam: PHYSICAL EXAMINATION: GENERAL: Male, NAD, alert and O 3 HEENT: Head is normocephalic and atraumatic. EOMI, PERRLA NECK: Supple. No carotid bruits. No lymphadenopathy or thyromegaly. CHEST: Nontender to palpation, symmetrical with adequate rise and fall LUNGS: Clear to auscultation B/L AP and L. HEART: Regular rate and rhythm, S1, S2 without murmur, rubs or gallops. ABDOMEN: Soft, nontender, and nondistended. NABS EXTREMITIES: Without any cyanosis, rash, lesions or edema. NEUROLOGIC: Cranial nerves II through XII are grossly intact. Fine tremmors persists PSYCHIATRIC: Calm, Appropriate affect, denies SI/HI, without agitation or anxiety. Denies any auditory/visual hallucinations. SKIN: No ulceration or induration present. - Patient Status Disposition: Home, Self-Care Condition: Fair Functional capacity at discharge: independent ambulation Overall status at discharge: patient is back to baseline - Discharge Instructions Instructions: Chronic Hypertension (DC) Follow Up With: Bryanna South DO [Resident] - Miky Jesus DO [Resident] - 07/06/18 10:00 am - Diet and Activity Activity: increase activity as tolerated, resume usual activities as tolerated Diet: advance to your usual diet
--- NOTE | 2018-07-04 07:49 | Electrocardiograph Report ---
[address] [address] Test Date: 2018-06-29 Pat Name: Earl Bailey Department: EXAM4 Room: 3B11 Gender: M Sourcing Engineer: : [id number] Requested By: Marisol Bañuelos Order Number: [id number] Reading MD: Ilan Davis Measurements Intervals [place] Rate: 99 P: 66 LA: 152 QRS: 26 QRSD: 98 T: 46 QT: 339 QTc: 435 Interpretive Statements Sinus rhythm Electronically Signed On 07-04-2018 7:48:06 EST by Ilan Davis
== END 2018-07-02 14:40 | disposition home or self-care (01) ==
LOC: EMEROOARM 20:00 → 3BNU 20:00
PROVIDERS: ADMIT Internal Medicine Nephrology; ATTEND Internal Medicine Nephrology

== ENCOUNTER 2019-10-27 20:55 | Observation (INO) ==
[2019-10-27] MEDS ORDERED: Aspirin 81 MG TAB.CHEW PO ONE (21:15)
[2019-10-27] MEDS ORDERED: Nitroglycerin 0.4 MG TAB.SUBL SL PRN (21:16)
[2019-10-27 21:32] LABS: Basophils # 0.1 K/mcL (0.0-0.2); Basophils % 0.9 %; Eosinophils # 0.1 K/mcL (0.0-0.6); Eosinophils % 0.8 %; Hematocrit 45.2 % (37.5-50.1); Hemoglobin 15.4 g/dL (12.9-16.9); Immature Granulocytes % 0.2 % (0-4); Lymphocytes # 1.7 K/mcL (0.6-4.6); Lymphocytes % 16.3 %; Mean Corpuscular HGB Conc 34.1 g/dL (31.6-35.5); Mean Corpuscular Hemoglobin 32.4 pg (28.0-33.3); Monocytes # 1.2 K/mcL (0.0-1.3); Monocytes % 11.2 %; Neutrophils # 7.5 K/mcL (1.6-8.9); Platelet Count 230 K/mcL (140-400); Red Blood Count 4.76 M/mcL (4.19-5.50); Red Cell Distribution Width 13.3 % (11.5-14.5); Segmented Neutrophils % 70.6 %; White Blood Count 10.6 K/mcL (4.3-11.1)
[2019-10-27 21:47] LABS: Amphetamine Screen,Urine Negative ng/mL (Cutoff=1000); Barbiturate Screen,Urine Negative ng/mL (Cutoff=200); Benzodiazepines Screen,Urine Negative ng/mL (Cutoff=200); Cannabinoid Screen,Urine Negative ng/mL (Cutoff = 50); Cocaine Screen,Urine Negative ng/mL (Cutoff= 300); Opiate Screen,Urine Negative ng/mL (Cutoff=300); Phencyclidine Screen,Urine Negative ng/mL (Cutoff=25)
[2019-10-27 21:54] LABS: Acetaminophen < 10 mcg/mL (10-20); Ethanol 326 mg/dL (Less than 10); Salicylate < 2.5 mg/dL (15.0-30.0)
[2019-10-27 21:57] LABS: Alanine Aminotransferase 29 Units/L (7-52); Albumin 4.8 g/dL (3.5-5.7); Albumin/Globulin Ratio 1.5 (1.1-2.2); Alkaline Phosphatase 87 Units/L (34-104); Aspartate Amino Transferase 53 Units/L (13-39); BUN/Creatinine Ratio 15 (6-26); Bilirubin,Total 0.3 mg/dL (0.3-1.0); Blood Urea Nitrogen 10 mg/dL (6-20); Calcium 8.9 mg/dL (8.6-10.3); Carbon Dioxide 25 mEq/L (23-29); Chloride 101 mEq/L (98-107); Creatine Kinase 1272 Units/L (30-223); Globulin 3.2 g/dL (2.4-3.5); Glucose 81 mg/dL (70-105); Magnesium 1.9 mg/dL (1.6-2.6); Osmolality,Calculated 284 (280-300); Potassium 3.9 mEq/L (3.5-5.1); Sodium 138 mEq/L (136-145); eGFR For African Americans > 60 (> 60); eGFR For Non-African Americans > 60 (> 60)
[2019-10-27 21:58] LABS: Troponin I < 0.03 ng/mL (< 0.04)
[2019-10-27] MEDS ORDERED: Isovue-370 500 ML BOTTLE IVP ONE (22:04)
[2019-10-27] MEDS ORDERED: 0.9 % Sodium Chloride 1,000 ML IV ONE (22:04)
[2019-10-27] MEDS ORDERED: Naloxone 0.4 MG/ML INJ IVP PRN (23:31)
[2019-10-27] MEDS ORDERED: Ondansetron 4 MG/2 ML VIAL IVP PRN (23:31)
[2019-10-27] MEDS ORDERED: *HR* LORazepam 2 MG/ML VIAL IVP PRN ×3 (23:38)
[2019-10-28] MEDS: 0.9 % Sodium Chloride 1,000 ML IVC SCH ×2 (00:50→14:16)
[2019-10-28 03:27] LABS: Hematocrit 42.7 % (37.5-50.1); Hemoglobin 14.5 g/dL (12.9-16.9); Mean Corpuscular Hemoglobin 32.5 pg (28.0-33.3); Mean Corpuscular Volume 95.7 fL (83.0-100.0); Platelet Count 208 K/mcL (140-400); Red Blood Count 4.46 M/mcL (4.19-5.50); Red Cell Distribution Width 13.5 % (11.5-14.5); White Blood Count 6.3 K/mcL (4.3-11.1)
[2019-10-28 03:48] LABS: BUN/Creatinine Ratio 14 (6-26); Blood Urea Nitrogen 8 mg/dL (6-20); Calcium 8.1 mg/dL (8.6-10.3); Carbon Dioxide 23 mEq/L (23-29); Chloride 104 mEq/L (98-107); Glucose 76 mg/dL (70-105); Osmolality,Calculated 285 (280-300); Potassium 4.1 mEq/L (3.5-5.1); Sodium 139 mEq/L (136-145); eGFR For African Americans > 60 (> 60); eGFR For Non-African Americans > 60 (> 60)
[2019-10-28] MEDS ORDERED: Regadenoson 0.4 MG/5 ML SYRINGE IVP ONE (10:02)
[2019-10-28] MEDS: Aspirin 81 MG TAB.CHEW PO SCH (10:35)
[2019-10-28] MEDS ORDERED: Thiamine (B-1) 100 MG, Folic Acid 1 MG, MVI, adult with vitamin K 10 ML in 0.9 % Sodi... IVPB SCH (18:00)
[2019-10-29 03:30] LABS: BUN/Creatinine Ratio 20 (6-26); Blood Urea Nitrogen 13 mg/dL (6-20); Calcium 8.4 mg/dL (8.6-10.3); Carbon Dioxide 28 mEq/L (23-29); Chloride 102 mEq/L (98-107); Creatine Kinase 829 Units/L (30-223); Glucose 91 mg/dL (70-105); Osmolality,Calculated 282 (280-300); Phosphorous 3.2 mg/dL (2.7-4.5); Potassium 3.7 mEq/L (3.5-5.1); Sodium 136 mEq/L (136-145); eGFR For African Americans > 60 (> 60); eGFR For Non-African Americans > 60 (> 60)
[2019-10-29] MEDS: Aspirin 81 MG TAB.CHEW PO SCH (07:53)
[2019-10-29] MEDS ORDERED: 0.9 % Sodium Chloride 1,000 ML IVC SCH (08:45)
[2019-10-29] MEDS ORDERED: lisinopriL 5 MG TABLET PO SCH (10:00)
[2019-10-29 10:04] LABS: Chol/HDL Ratio 1.8 (0-4.9); Cholesterol 134 mg/dL (< 200); HDL Cholesterol 75 mg/dL (40-59); LDL Cholesterol,Calculated 47 mg/dL (0-99); Triglycerides 58 mg/dL (< 150)
[2019-10-29 12:02] VITALS: BP 148/79
== END 2019-10-29 13:01 | disposition home or self-care (01) ==
LOC: EMEROOARM 20:55 → 3BNU 20:55 → SUATTDRO 23:28 → 3BNU 10-28 00:10
PROVIDERS: ADMIT Student in an Organized Health Care Education/Training Program; ATTEND Internal Medicine

== ENCOUNTER 2020-04-10 21:01 | Observation (INO) ==
[2020-04-10 21:43] LABS: Basophils # 0.1 K/mcL (0.0-0.2); Basophils % 1.3 %; Eosinophils # 0.1 K/mcL (0.0-0.6); Eosinophils % 1.6 %; Hemoglobin 14.6 g/dL (12.9-16.9); Immature Granulocytes % 0.2 % (0-4); Lymphocytes # 1.8 K/mcL (0.6-4.6); Lymphocytes % 28.4 %; Mean Corpuscular Hemoglobin 32.1 pg (28.0-33.3); Mean Corpuscular Volume 94.5 fL (83.0-100.0); Mean Platelet Volume 9.4 fL (9.4-12.4); Monocytes # 0.8 K/mcL (0.0-1.3); Monocytes % 12.4 %; Neutrophils # 3.5 K/mcL (1.6-8.9); Platelet Count 179 K/mcL (140-400); Red Blood Count 4.55 M/mcL (4.19-5.50); Red Cell Distribution Width 13.5 % (11.5-14.5); Segmented Neutrophils % 56.1 %; White Blood Count 6.2 K/mcL (4.3-11.1)
[2020-04-10 22:04] LABS: Alanine Aminotransferase 39 Units/L (7-52); Albumin 4.4 g/dL (3.5-5.7); Albumin/Globulin Ratio 1.5 (1.1-2.2); Alkaline Phosphatase 71 Units/L (34-104); Aspartate Amino Transferase 79 Units/L (13-39); BUN/Creatinine Ratio 10 (6-26); Bilirubin,Direct 0.1 mg/dL (0.0-0.2); Bilirubin,Indirect 0.1 mg/dL (0.0-1.0); Bilirubin,Total 0.2 mg/dL (0.3-1.0); Blood Urea Nitrogen 6 mg/dL (6-20); Calcium 8.3 mg/dL (8.6-10.3); Carbon Dioxide 25 mEq/L (23-29); Chloride 102 mEq/L (98-107); Ethanol 416 mg/dL (Less than 10); Glucose 91 mg/dL (70-105); Lipase 92 Units/L (11-82); Osmolality,Calculated 287 (280-300); Potassium 3.8 mEq/L (3.5-5.1); Sodium 140 mEq/L (136-145); Total Protein 7.4 g/dL (6.4-8.9); eGFR For African Americans > 60 (> 60); eGFR For Non-African Americans > 60 (> 60)
[2020-04-10 22:05] LABS: Troponin I < 0.03 ng/mL (< 0.04)
[2020-04-10] MEDS ORDERED: Aspirin 81 MG TAB.CHEW PO STA (22:32)
[2020-04-10] MEDS ORDERED: Nitroglycerin 0.4 MG TAB.SUBL SL PRN (22:32)
[2020-04-11] MEDS ORDERED: Naloxone 0.4 MG/ML INJ IVP PRN ×2 (00:55→00:57)
[2020-04-11] MEDS ORDERED: *HR* LORazepam 2 MG/ML VIAL IVP PRN ×3 (02:04)
[2020-04-11 03:18] LABS: Basophils % 0.9 %; Eosinophils # 0.1 K/mcL (0.0-0.6); Eosinophils % 2.1 %; Hematocrit 41.9 % (37.5-50.1); Hemoglobin 14.3 g/dL (12.9-16.9); Immature Granulocytes % 0.2 % (0-4); Lymphocytes # 1.3 K/mcL (0.6-4.6); Lymphocytes % 30.6 %; Mean Corpuscular HGB Conc 34.1 g/dL (31.6-35.5); Mean Corpuscular Hemoglobin 33.3 pg (28.0-33.3); Mean Corpuscular Volume 97.4 fL (83.0-100.0); Mean Platelet Volume 9.7 fL (9.4-12.4); Monocytes # 0.5 K/mcL (0.0-1.3); Monocytes % 10.7 %; Neutrophils # 2.4 K/mcL (1.6-8.9); Platelet Count 171 K/mcL (140-400); Red Cell Distribution Width 13.5 % (11.5-14.5); Segmented Neutrophils % 55.5 %; White Blood Count 4.3 K/mcL (4.3-11.1)
[2020-04-11 03:26] LABS: Prothrombin Time 11.5 Seconds (9.4-12.1)
[2020-04-11 03:37] LABS: Alanine Aminotransferase 33 Units/L (7-52); Albumin/Globulin Ratio 1.5 (1.1-2.2); Alkaline Phosphatase 65 Units/L (34-104); Aspartate Amino Transferase 71 Units/L (13-39); BUN/Creatinine Ratio 11 (6-26); Bilirubin,Total 0.3 mg/dL (0.3-1.0); Blood Urea Nitrogen 6 mg/dL (6-20); Carbon Dioxide 27 mEq/L (23-29); Chloride 104 mEq/L (98-107); Globulin 2.7 g/dL (2.4-3.5); Glucose 82 mg/dL (70-105); Magnesium 2.1 mg/dL (1.6-2.6); Osmolality,Calculated 291 (280-300); Phosphorous 3.8 mg/dL (2.7-4.5); Potassium 3.8 mEq/L (3.5-5.1); Sodium 142 mEq/L (136-145); Total Protein 6.7 g/dL (6.4-8.9); eGFR For African Americans > 60 (> 60); eGFR For Non-African Americans > 60 (> 60)
[2020-04-11] MEDS ORDERED: Nitroglycerin 0.4 MG TAB.SUBL SL PRN (05:57)
[2020-04-11] MEDS ORDERED: *HR* Heparin 5,000 UNIT/ML VIAL SQ SCH (06:00)
[2020-04-11 07:15] VITALS: BP 150/76
[2020-04-11] MEDS ORDERED: Isosorbide MONOnitrate (24 HR) 30 MG TAB.ER.24H PO SCH (11:15)
[2020-04-11] MEDS ORDERED: Thiamine (B-1) 100 MG, Folic Acid 1 MG, MVI, adult with vitamin K 10 ML in 0.9 % Sodi... IVPB SCH (18:00)
== END 2020-04-11 13:30 | disposition home or self-care (01) ==
LOC: 3BNU 21:01 → EMEROOARM 21:01 → 3BNU 04-11 01:08
PROVIDERS: ADMIT Internal Medicine; ATTEND Internal Medicine